=== PATIENT | female | born 1955 | race Caucasian/White ===

== ENCOUNTER → 2017-12-16 07:45 | Outpatient (CLI) | payer OTHER, SELFPAY ==
[2016-11-25 14:44] VITALS: BMI 21.6
--- NOTE | 2017-12-16 07:47 | CDU_ITS ---
Reason For Study: bruit Rt. Velocities/BP Lt. Velocities/BP Prox CCA 68.0/25.8 cm/sec. Prox CCA 70.9/26.4 cm/sec. Mid CCA 85.0/27.6 cm/sec. Mid CCA 80.9/29.9 cm/sec. Dist CCA 75.0/25.8 cm/sec. Dist CCA 58.6/25.2 cm/sec. Prox ICA 73.3/28.7 cm/sec. Prox ICA 130/51.1 cm/sec. Mid ICA 75.6/34.0 cm/sec. Mid ICA 133/47.1 cm/sec. Dist ICA 79.7/32.8 cm/sec. Dist ICA 92.6/36.4 cm/sec. Rt. ICA/CCA = .9. Lt. ICA/CCA = 1.6. Prox ECA 101/24.6 cm/sec. Prox ECA 96.7/24.0 cm/sec. Rt. Vert. 31.1/11.7 cm/sec. Lt. Vert. 68.6/25.8 cm/sec. Right Extracranial There is homogeneous, smooth atherosclerotic plaque noted in the right common carotid artery. There is heterogeneous, irregular atherosclerotic plaque noted in the right internal carotid artery. There is homogeneous, smooth atherosclerotic plaque noted in the right external carotid artery. Antegrade flow is noted in the right vertebral artery. Left Extracranial There is homogeneous, smooth atherosclerotic plaque noted in the left common carotid artery. There is heterogeneous, irregular atherosclerotic plaque noted in the left internal carotid artery. There is heterogeneous, irregular atherosclerotic plaque noted in the left external carotid artery. Antegrade flow is noted in the left vertebral artery. Procedure Carotid Duplex 06696. The exam was diagnostic. Exam performed in department. Interpretation Summary Calcific irregular plague at the proximal right internal carotid with <50% stenosis. Normal flow right external carotid Calcific irregular plague at the proximal left internal carotid with 50-69% stenosis. Normal flow left external carotid Patent and antegrade vertebrals bilaterally Progression of disease on the left since 06/11/09. Ordering Physician: Karuna Gaspar Performed By: Oniel Anderson RVT
--- NOTE | 2017-12-17 06:08 | LEAS ---
Arterial Study - Arterial Study Arterial Study: Bilateral lower extremity noninvasive arterial exam at rest Patient with bilateral lower extremity claudication Right lower extremity The right PT and DP ankle-brachial index at rest are 1.1 401.14 respectively with triphasic Doppler waveforms. Volume pulse recordings do demonstrate normal amplification at the calf. The ankle waveforms are well maintained. Left lower extremity The left PT and DP ankle-brachial indices at rest are 1.1 and 1.05 respectively. Again the Doppler waveforms are triphasic. The volume pulse recordings demonstrate normal amplification at the calf. The ankle waveforms are well maintained. Impression Normal bilateral lower extremity noninvasive arterial exam at rest Adan Benitez M.D., F.A.C.S.
== END ==
PROVIDERS: Family Provider Nurse Practitioner Primary Care; PCP Nurse Practitioner Primary Care; Referring Provider Physician Assistant Medical; Visit Provider Physician Assistant Medical
DX: I10 Essential (primary) hypertension (principal); E78.00 Pure hypercholesterolemia, unspecified; I73.9 Peripheral vascular disease, unspecified; R09.89 Other specified symptoms and signs involving the circulatory and respiratory systems; I25.10 Atherosclerotic heart disease of native coronary artery without angina pectoris
CPT/HCPCS: 93880; 93923

== ENCOUNTER → 2018-04-25 12:48 | Outpatient (CLI) | payer OTHER, SELFPAY ==
[2016-11-25 14:44] VITALS: BMI 21.6
[2018-03-03 14:53] VITALS: BMI 23.3
--- NOTE | 2018-04-25 12:52 | CT_ITS ---
STUDY: CT CHEST WITHOUT CONTRAST REASON FOR EXAM: Female, 63 years old. Follow-up pulmonary nodule. Previous smoker. Quit smoking 4 years ago. RADIATION DOSAGE (If Supplied By Facility): CTDIvol = ( 7.23 ) mGy, DLP = ( 248.23 ) mGycm TECHNIQUE: Transaxial imaging was performed without the administration of intravenous contrast material. Coronal and sagittal reconstructions were performed. Individualized dose optimization techniques were used for this CT. COMPARISON: None. FINDINGS: Pulmonary hyperinflation with flattening of the hemidiaphragms. 10 mm ill-defined round infiltrate with air bronchograms in the superior segment of the left lower lobe (series 4, image 136). 1 x 0.6 cm thick walled cyst in the anterior peripheral segment of the right upper lobe (series 4, image 74). Asymmetric bilateral apical pleural scarring, right greater than left. No pleural fluid. Normal heart and pericardium. Normal mediastinum. Normal hilar regions. Normal unenhanced pulmonary arteries. Mild dilatation of the ascending aorta with a diameter of 3.3 cm versus 2.2 cm for the descending thoracic aorta. Mild anterior wedging of the L1 superior endplate may be developmental or from remote injury. No acute osseous abnormality. There is no demonstrated abnormality of the visualized upper abdomen. CT/Chest without Contrast IMPRESSION: 1. 10 mm ill-defined from infiltrate containing small air bronchograms in the superior segment of the left lower lobe. Follow-up CT in one month will be very helpful for more definitive evaluation. 2. 1 x 0.6 cm thick-walled cyst in the peripheral aspect of the anterior segment of the right upper lobe. This may be postinflammatory. 3. Asymmetric bilateral apical pleural scarring, right greater than left. 4. Mild dilatation of the ascending aorta with a diameter of 3.3 cm versus 2.2 cm for the descending thoracic aorta. 5. Old mild anterior wedge compression fracture of the upper L1 vertebral body. Electronically Signed: Raudel Ahuja MD at 13:53 EST , Service support ,
== END ==
PROVIDERS: Family Provider Nurse Practitioner Primary Care; PCP Nurse Practitioner Primary Care; Referring Provider Internal Medicine Pulmonary Disease; Visit Provider Internal Medicine Pulmonary Disease
DX: R91.1 Solitary pulmonary nodule (principal)
CPT/HCPCS: 71250

== ENCOUNTER 2018-07-14 11:32 | Emergency (ER) | payer OTHER, SELFPAY ==
[2016-11-25 14:44] VITALS: BMI 21.6
[2018-03-03 14:53] VITALS: BMI 23.3
[2018-07-14 11:32] VITALS: BP 146/71; PULSE 107; RESP 16; TEMP 36.7; O2SAT 98; BMI 22.6
--- NOTE | 2018-07-14 12:09 | VDLE_ITS ---
Reason For Study: swelling RIGHT LEFT GSV is normal. CFV is compressible, spontaneous, phasic, CFV is compressible, spontaneous, phasic, competent, and demonstrates normal competent and demonstrates normal augmentation. augmentation. FV is compressible, spontaneous, phasic, competent and demonstrates normal augmentation. POP V is compressible, spontaneous, phasic, competent and demonstrates normal augmentation. T/P Trunk is compressible. PTV is compressible. RT PerV is compressible. Procedure Exam performed portable in ED. The exam was diagnostic. A preliminary report was called and/or faxed to Dr. Davidson. Interpretation Summary There is no evidence of right lower extremity deep vein thrombosis. Right greater saphenous vein appears patent and compressible segmentally. Normal flow patterns left common femoral vein. Ordering Physician: Silverio Davidson Performed By: Oniel Anderson RVT
--- NOTE | 2018-07-14 12:11 | ED.VISSUMM ---
- ER Visit Summary Date of Service: 07/14/18 Chief Complaint: Right lower ankle swelling and lower leg History of Present Illness: The patient is a 63 F status post left partial lung resection at the [facility] several weeks ago. Patient had a lung cancer they resected. She is been doing well. She denies DVT or PE. He was in the hospital 1 day. She denies any chest pain or shortness of breath. States otherwise she feels fine. Was told me that this checked out due to the possibility of it being a blood clot. She denies any trauma to her leg. Says she normally does not swelling. Physical Examination: Well-appearing older female. Vital signs are stable afebrile. H EENT exam unremarkable. Neck nontender no JVD. Lungs clear to auscultation bilaterally. Heart regular rhythm no murmur. Chest wall nontender. Abdomen soft and nontender. Normal bowel sounds no peritoneal signs. No ascites. Patient is moving all 4 extremities. Neurovascular intact. Is a very small amount of swelling to her right lateral lower leg and ankle. There is no deformity. The bones are nontender. She has normal range of motion to her right hip, right knee, right ankle and foot. Foot is neurovascular intact with normal touch sensation motor strength and DP pulse. Calves are nontender without cords. The left lower extremity has no edema or swelling. Back exam shows well-healing left lateral incisions clear dry and clean. Test Results: Noninvasive study of her right lower extremity shows no DVT per the hearing aid repair technician. Emergency Department Course and Treatment: Repeat exam patient is doing well and 12:40 PM. Discussed test results with the patient. Treatment Plan: Elevate her leg. Follow-up if not improving. Disposition: Discharge Impression: Atraumatic right lower leg swelling Status post recent partial left lung resection due to lung CA This note was generated with [employer] software. It may contain incorrect words, spelling, and punctuation that were not noted in review of the chart prior to signing ED Disposition - Plan for ED Patient: Referrals: Izabella Do NP-C [Primary Care Provider] -
--- NOTE | 2018-07-14 12:52 | ED.DEP ---
ED Disposition - Plan for ED Patient: Disposition: Home or Assisted Living Referrals: Izabella Do NP-C [Primary Care Provider] - 1 Week if not improving Additional Instructions: Elevate your leg to decrease swelling. No signs of blood clot today. Follow-up with your doctor if not improving.
== END 2018-07-14 13:05 | disposition home or self-care (01) ==
LOC: ED 13:20
PROVIDERS: Emergency Provider Emergency Medicine; Family Provider Nurse Practitioner Primary Care; PCP Nurse Practitioner Primary Care
DX: M79.89 Other specified soft tissue disorders (principal); R60.0 Localized edema; C34.92 Malignant neoplasm of unspecified part of left bronchus or lung; I25.10 Atherosclerotic heart disease of native coronary artery without angina pectoris; I10 Essential (primary) hypertension; Z79.51 Long term (current) use of inhaled steroids; Z79.82 Long term (current) use of aspirin; Z79.899 Other long term (current) drug therapy
CPT/HCPCS: 93971; 99282

== ENCOUNTER → 2019-01-26 | Outpatient (CLI) | payer OTHER, SELFPAY ==
[2016-11-25 14:44] VITALS: BMI 21.6
[2018-08-31 10:02] VITALS: BMI 22.2
--- NOTE | 2019-01-26 07:20 | CT_ITS ---
STUDY: CT CHEST WITHOUT CONTRAST REASON FOR EXAM: Female, 63 years old. History of lung cancer, study for follow-up. RADIATION DOSAGE (If Supplied By Facility): CTDIvol = ( 7.16 ) mGy, DLP = ( 273.78 ) mGycm TECHNIQUE: Transaxial imaging was performed without the administration of intravenous contrast material. Multiplanar coronal and sagittal images were reformatted. Individualized dose optimization techniques were used for this CT. COMPARISON: None. FINDINGS: The lungs are expanded with moderate to large bullous changes consistent with emphysema. This questionable groundglass opacity with reticular pattern within the right lower lobe which may indicate pneumonitis. Other presentation of TB not entirely excluded. There is mild bilateral lower lobe scarring. Heart maintains normal size. Coronary artery calcifications noted. Normal mediastinum. Normal hilar regions. Normal unenhanced pulmonary arteries. There is atherosclerotic calcification of the aortic arch with tortuosity and elongation of the aortic arch and descending thoracic aorta. Diffuse osteopenia qualitative along with multilevel degenerative disease. There is no demonstrated abnormality of the visualized upper abdomen. CT/Chest without Contrast IMPRESSION: Diffuse emphysematous changes throughout the bilateral lung driscoll, more severe in the lung apices. Right lower lobe airspace disease suggestive of pneumonia. Clinical correlation recommended. Electronically Signed: Yolande Sanchez MD at 5:25 EST , Service support ,
== END | disposition home or self-care (01) ==
LOC: CT 07:19
PROVIDERS: Family Provider Nurse Practitioner Primary Care; PCP Nurse Practitioner Primary Care; Referring Provider Internal Medicine Pulmonary Disease; Visit Provider Internal Medicine Pulmonary Disease
DX: R91.1 Solitary pulmonary nodule (principal); C34.90 Malignant neoplasm of unspecified part of unspecified bronchus or lung
CPT/HCPCS: 71250

== ENCOUNTER → 2019-02-15 14:47 | Outpatient (CLI) | payer OTHER, SELFPAY ==
[2016-11-25 14:44] VITALS: BMI 21.6
[2018-08-31 10:02] VITALS: BMI 22.2
[2019-02-15 16:17] LABS: Absolute Lymphocyte Count 1.04 X10^3/uL (0.83-4.51); Absolute Neutrophil Count 4.9 X10^3/uL (2.0-7.7); Basophil# 0.03 X10^3/uL; Basophil% 0.4 % (0-1); Eosinophil# 0.17 X10^3/uL; Eosinophils% 2.4 % (0-5); Hematocrit 39.5 % (37-47); Hemoglobin 12.6 g/dL (12.0-15.0); Lymphocyte # 1.04 X10^3/ul (4.0); Lymphocyte % 14.8 % (19-41); Mean Corp Hgb Conc 31.9 g/dL (32-36); Mean Corpuscular Hgb 31.2 pg (27.0-32.0); Mean Corpuscular Volume 97.8 fL (81-99); Mean Platelet Vol. 11.1 fl (6.2-12.0); Monocyte# 0.89 X10^3/uL; Monocyte% 12.7 % (0-10); NRBC Flagged by Analyzer 0 % (0-5); Neutrophil # 4.85 X10^3/uL (2.7-7.7); Platelet Count 190 K/mm3 (150-450); RBC Distribution Width SD 46.5 fl (35.1-43.9); Red Blood Count 4.04 M/mm3 (4.2-5.4)
== END ==
PROVIDERS: Family Provider Nurse Practitioner Primary Care; PCP Nurse Practitioner Primary Care; Referring Provider Internal Medicine Pulmonary Disease; Visit Provider Internal Medicine Pulmonary Disease
DX: J44.9 Chronic obstructive pulmonary disease, unspecified (principal)
CPT/HCPCS: 36415; 85025; 87070; 87205

== ENCOUNTER → 2019-09-08 07:30 | Outpatient (CLI) | payer OTHER, SELFPAY ==
[2016-11-25 14:44] VITALS: BMI 21.6
[2018-08-31 10:02] VITALS: BMI 22.2
[2019-08-24 11:20] VITALS: BMI 22.2
--- NOTE | 2019-09-08 07:32 | CT_ITS ---
STUDY: LOW DOSE CT LUNG CANCER SCREENING REASON FOR EXAM: Female, 64 years old. TOBACCO USE, LUNG NODULE RADIATION DOSAGE (If Supplied By Facility): CTDIvol = ( 2.01 ) mGy, DLP = ( 77.26 ) mGycm TECHNIQUE: No contrast was administered. Low dose technique was utilized (average mAS-38 and kVp 120). 1.25 mm axial source images with a slice interval of 1.25-mm were reconstructed in lung windows. 2.5 mm axial source images with a slice interval of 2.5-mm were reconstructed in lung windows. 5.0 mm axial source images with a slice interval of 5.0-mm were reconstructed in soft tissue windows. Nodule measured using lung windows on PACS and/or independent workstation with automated measurement of minimum and maximum diameter. Nodule measurement reported as average diameter rounded to the nearest whole number. Growth is defined as an increase ins size of greater than 1.5 mm. COMPARISON: 01/26/2019 FINDINGS: Lung windows show underlying emphysema with bleb formation in the upper lobes. Stable fibrotic scarring in both apices. There is a stable pneumatocele in the right upper lobe on axial image 99. There is a stable calcified scar in the left upper lobe on axial image 132. There is a new 0.64 cm noncalcified nodule in the right middle lobe on axial image 155. There is a stable 3 mm noncalcified nodule in the right lower lobe on axial image 223. This new 0.64 cm nodule should be followed up with a CT chest in 6 months There has been resolution of the previously described airspace opacifications in the right lower lobe. There is no superimposed acute pulmonary process, or suspicious groundglass opacifications. Limited soft tissue windows show normal-appearing thyroid. No suspicious axillary or mediastinal adenopathy. There are calcified coronary vessels. No pleural or pericardial effusions. Degenerative bony changes noted. CT/Low Dose CT Lung Screening IMPRESSION: Lung-RADS category 3 - Continue screening with LDCT in 6 months. IMPORTANT NOTES FOR USE: ACR Lung-RADS Version 1.0 Assessment Categories Release Date: July 10, 2013 Category: Coded 0-4 bases on nodule(s) with highest degree of suspicion. Negative screen is defined as categories 1 and 2; a positive screen is defined as categories 3 and 4. Category 3 and 4A nodules that are unchanged on interval CT should be coded as category 2, and individuals returned to screening in 12 months. Category 4X: Category 3 or 4 nodules with additional imaging findings that increase the suspicion of lung cancer, such as spiculation, GGN that doubles in size in 1 year, enlarged lymph notes, etc. Category Modifiers: S (significant finding unrelated to lung cancer) and C (prior history of treated lung cancer) may be added to the 0-4 Lung-RADS Electronically Signed: Triston Pantoja MD at 14:12 EDT , Service support ,
== END ==
PROVIDERS: Family Provider Nurse Practitioner Primary Care; PCP Nurse Practitioner Primary Care; Referring Provider Internal Medicine Pulmonary Disease; Visit Provider Internal Medicine Pulmonary Disease
DX: R91.1 Solitary pulmonary nodule (principal); Z87.891 Personal history of nicotine dependence
CPT/HCPCS: G0297

== ENCOUNTER → 2019-09-12 08:03 | Outpatient (CLI) | payer OTHER, SELFPAY ==
[2016-11-25 14:44] VITALS: BMI 21.6
[2019-08-24 11:20] VITALS: BMI 22.2
--- NOTE | 2019-09-12 08:03 | ECHOD_ITS ---
Reason For Study: CAD Procedure This was a 2D Doppler, Color Flow transthoracic echocardiogram. Exam performed in department. Left Ventricle Normal size and thickness. The estimated ejection fraction is 65 %. Stage 1 diastolic dysfunction. No regional wall motion abnormalities noted. Right Ventricle Normal size and thickness. A moderator band is seen in the right ventricle. Normal systolic function. Atria Normal left atrium. Normal right atrium. Normal atrial septum. Mitral Valve The mitral valve is structurally normal. No prolapse or stenosis seen. Mild (1+) eccentric mitral valve insufficiency. Tricuspid Valve Normal tricuspid valve. Mild (1+) tricuspid valve insufficiency. Right ventricular systolic pressure estimated to be 29 mmHg. Aortic Valve Normal aortic valve. Trisinus/trileaflet aortic valve. Pulmonic Valve Normal pulmonic valve. Great Vessels Normal aortic root. Normal arch. Normal inferior vena cava. Inferior vena cava collapse with sniff. Pericardium/Pleural No pericardial effusion. MMode/2D Measurements & Calculations LVIDd: 4.0 cm IVSd: 1.0 cm LAV(MOD-bp): 33.5 ml LVIDs: 2.4 cm LVPWd: 1.1 cm LAV(MOD-bp) Indexed: 19.6 ml/m2 FS: 40.8 % LAV(MOD-sp2): 42.3 ml LAV(MOD-sp4): 25.9 ml LA dimension(2D): 3.0 cm LA A4 area: 12.4 cm2 RA A4 area: 12.2 cm2 Doppler Measurements & Calculations MV E max jhony: 77.1 cm/sec Lat Peak E' Jhony: 5.6 cm/sec Med Peak E' Jhony: 4.3 cm/sec MV A max jhony: 101.4 cm/sec E/E' lat: 13.7 E/E' med: 17.8 MV E/A: 0.76 Ao V2 max: 111.1 cm/sec LV V1 max: 94.4 cm/sec PA V2 max: 69.5 cm/sec Ao max P.9 mmHg LV V1 max P.6 mmHg TR max jhony: 229.2 cm/sec TR max P.1 mmHg Interpretation Summary The estimated ejection fraction is 65 %. Stage 1 diastolic dysfunction. Mild (1+) eccentric mitral valve insufficiency. Mild (1+) tricuspid valve insufficiency. Right ventricular systolic pressure estimated to be 29 mmHg. Compared to echo report dated 09/20/2007, LV function has normalized from 53% to 65%. Ordering Physician: Pedro Luis Holland Referring Physician: Izabella Do Performed By: Leda Broderick RDCS and Student
== END ==
PROVIDERS: PCP Nurse Practitioner Primary Care; Referring Provider Internal Medicine Cardiovascular Disease; Visit Provider Internal Medicine Cardiovascular Disease
DX: I25.10 Atherosclerotic heart disease of native coronary artery without angina pectoris (principal); E78.00 Pure hypercholesterolemia, unspecified; F17.200 Nicotine dependence, unspecified, uncomplicated
CPT/HCPCS: 93306

== ENCOUNTER 2020-05-21 08:00 | Outpatient (RCR) | payer MEDICARE, SELFPAY ==
[2016-11-25 14:44] VITALS: BMI 21.6
[2020-03-28 13:01] VITALS: BMI 22.9
[2020-05-21] MEDS: COVID-19 VACC, MRNA(PFIZER)/PF 30 MCG/0.3 ML SYRINGE IM (11:48)
[2020-06-11] MEDS: COVID-19 VACC, MRNA(PFIZER)/PF 30 MCG/0.3 ML SYRINGE IM (11:12)
== END 2020-08-20 23:59 ==
LOC: IMMUN 08:00
PROVIDERS: PCP Nurse Practitioner Primary Care; Visit Provider Family Medicine
DX: Z23 Encounter for immunization (principal)
CPT/HCPCS: 0001A; 0002A; 91300

== ENCOUNTER 2021-03-27 09:39 | Outpatient (CLI) | payer MEDICARE, SELFPAY ==
[2016-11-25 14:44] VITALS: BMI 21.6
[2021-03-27 10:58] LABS: AST(SGOT) 40 U/L (15-37); Alanine Aminotransfer ALT/SGPT 41 U/L (13-56); Albumin, Serum 4.1 g/dL (3.2-5.0); Alkaline Phosphatase 134 U/L (45-117); Bilirubin, Direct 0.14 mg/dL (0.00-0.30); Cholesterol 176 mg/dL (200); Globulin 4.5 g/dL (2.2-4.2); High Density Lipoprotein 72 mg/dL; Protein, Total 8.6 g/dL (6.4-8.2); Triglycerides 113 mg/dL; Very Low Density Lipoprotein 23 mg/dL (5-40)
== END 2021-03-27 23:59 | disposition short-term general hospital (02) ==
PROVIDERS: PCP Nurse Practitioner Primary Care; Referring Provider Internal Medicine Cardiovascular Disease; Visit Provider Internal Medicine Cardiovascular Disease
DX: E78.00 Pure hypercholesterolemia, unspecified (principal); I25.10 Atherosclerotic heart disease of native coronary artery without angina pectoris; I65.22 Occlusion and stenosis of left carotid artery; I10 Essential (primary) hypertension; Z95.5 Presence of coronary angioplasty implant and graft
CPT/HCPCS: 36415; 80061; 80076

== ENCOUNTER 2021-05-16 12:43 | Outpatient (CLI) | payer MEDICARE, SELFPAY ==
[2016-11-25 14:44] VITALS: BMI 21.6
--- NOTE | 2021-05-16 12:51 | CDU_ITS ---
Reason For Study: Carotid artery disease Rt. Velocities/BP Lt. Velocities/BP Prox CCA 70.8/16 cm/sec. Prox CCA 69.2/11.6 cm/sec. Mid CCA 82.6/14.7 cm/sec. Mid CCA 70.2/14.5 cm/sec. Dist CCA 72.1/16 cm/sec. Dist CCA 64.5/19.2 cm/sec. Prox ICA 78.6/12.1 cm/sec. Prox ICA 143/38.9 cm/sec. Mid ICA 81.2/23.9 cm/sec. Mid ICA 115.6/24.3 cm/sec. Dist ICA 68.2/20 cm/sec. Dist ICA 75.4/27.9 cm/sec. Rt. ICA/CCA = 1.13. Lt. ICA/CCA = 2.07. Prox ECA 94.3/9.5 cm/sec. Prox ECA 137.5/13.3 cm/sec. Rt. Vert. 29.4/8.8 cm/sec. Lt. Vert. 41.9/13.5 cm/sec. Right Extracranial There is homogeneous, smooth atherosclerotic plaque noted in the right common carotid artery. There is heterogeneous, irregular atherosclerotic plaque noted in the right internal carotid artery. There is homogeneous, smooth atherosclerotic plaque noted in the right external carotid artery. Antegrade flow is noted in the right vertebral artery. Left Extracranial There is heterogeneous, irregular atherosclerotic plaque noted in the left common carotid artery. There is heterogeneous, irregular atherosclerotic plaque noted in the left internal carotid artery. There is heterogeneous, irregular atherosclerotic plaque noted in the left external carotid artery. Antegrade flow is noted in the left vertebral artery. Procedure Carotid Duplex [id number]. This is a Carotid Duplex examination using B-mode, color flow and specral Doppler. Exam performed in department. VL/Carotid Duplex Ultrasound Interpretation Summary Mild (<50%) stenosis right extracranial internal carotid. Moderate (50-69%) anai nosis left extracranial internal carotid. Flow within the vertebral arteries is antegrade bilaterally. Ordering Physician: Scooter Ulrich Referring Physician: Izabella Do Performed By: Sandra Huggins RVT
== END 2021-05-16 23:59 | disposition home or self-care (01) ==
LOC: CVS 12:45
PROVIDERS: PCP Nurse Practitioner Primary Care; Referring Provider Internal Medicine Cardiovascular Disease; Visit Provider Internal Medicine Cardiovascular Disease
DX: R09.89 Other specified symptoms and signs involving the circulatory and respiratory systems (principal); I77.9 Disorder of arteries and arterioles, unspecified
CPT/HCPCS: 93880

== ENCOUNTER → 2021-11-10 | Outpatient (CLI) | payer MEDICARE, SELFPAY ==
[2016-11-25 14:44] VITALS: BMI 21.6
[2021-11-10 10:58] LABS: AST(SGOT) 53 U/L (15-37); Alanine Aminotransfer ALT/SGPT 36 U/L (13-56); Alkaline Phosphatase 118 U/L (45-117); Bilirubin, Direct 0.18 mg/dL (0.00-0.30); Cholesterol 151 mg/dL (200); High Density Lipoprotein 71 mg/dL; Triglycerides 104 mg/dL; Very Low Density Lipoprotein 21 mg/dL (5-40)
== END | disposition home or self-care (01) ==
LOC: LAB 09:52
PROVIDERS: PCP Nurse Practitioner Primary Care; Referring Provider Physician Assistant Medical; Visit Provider Physician Assistant Medical
DX: E78.00 Pure hypercholesterolemia, unspecified (principal)
CPT/HCPCS: 36415; 80061; 80076

== ENCOUNTER → 2022-06-16 | Outpatient (CLI) | payer MEDICARE, SELFPAY ==
[2016-11-25 14:44] VITALS: BMI 21.6
--- NOTE | 2022-06-16 12:49 | CDU_ITS ---
Reason For Study: Carotid Stenosis Rt. Velocities/BP Lt. Velocities/BP Prox CCA 72.4/14.7 cm/sec. Prox CCA 84.2/17.1 cm/sec. Mid CCA 77.1/15.7 cm/sec. Mid CCA 95.2/20.4 cm/sec. Dist CCA 55.4/7.2 cm/sec. Dist CCA 62.2/8.4 cm/sec. Prox ICA 100.2/31.4 cm/sec. Prox ICA 164.8/32.7 cm/sec. Mid ICA 80.9/21.4 cm/sec. Mid ICA 181.3/38.6 cm/sec. Dist ICA 49.5/12.5 cm/sec. Dist ICA 79.8/28.1 cm/sec. Rt. ICA/CCA = 1.3. Lt. ICA/CCA = 1.9. Prox ECA 106.9/13.5 cm/sec. Prox ECA 174.7/7.9 cm/sec. Rt. Vert. 26.6/8.1 cm/sec. Lt. Vert. 62.0/14.7 cm/sec. Right Extracranial There is heterogeneous, irregular atherosclerotic plaque noted in the right common carotid artery. There is heterogeneous, irregular atherosclerotic plaque noted in the right internal carotid artery. There is heterogeneous, irregular atherosclerotic plaque noted in the right external carotid artery. Antegrade flow is noted in the right vertebral artery. Left Extracranial There is heterogeneous, irregular atherosclerotic plaque noted in the left common carotid artery. There is heterogeneous, irregular atherosclerotic plaque noted in the left internal carotid artery. There is heterogeneous, irregular atherosclerotic plaque noted in the left external carotid artery. Antegrade flow is noted in the left vertebral artery. VL/Carotid Duplex Ultrasound Interpretation Summary Mild (<50%) stenosis right extracranial internal carotid. Moderate (50-69%) stenosis left extracranial internal carotid. Patent and antegrade vertebrals bilaterally. Ordering Physician: Karuna Gaspar Referring Physician: Karuna Gaspar Performed By: Vinnie Lee RVT
== END | disposition home or self-care (01) ==
LOC: CVS 12:46
PROVIDERS: PCP Nurse Practitioner Primary Care; Referring Provider Physician Assistant Medical; Visit Provider Physician Assistant Medical
DX: R09.89 Other specified symptoms and signs involving the circulatory and respiratory systems (principal)
CPT/HCPCS: 93880

== ENCOUNTER → 2022-09-03 | Outpatient (CLI) | payer MEDICARE, SELFPAY ==
[2016-11-25 14:44] VITALS: BMI 21.6
[2022-09-03 15:48] LABS: Absolute Lymphocyte Count 0.75 X10^3/uL (0.83-4.51); Absolute Neutrophil Count 7.6 X10^3/uL (2.0-7.7); Basophil# 0.02 X10^3/uL; Basophil% 0.2 % (0-1); Eosinophil# 0.01 X10^3/uL; Eosinophils% 0.1 % (0-5); Hematocrit 42.3 % (37-47); Lymphocyte # 0.75 X10^3/ul (0.83-4.51); Lymphocyte % 8.3 % (19-41); Mean Corp Hgb Conc 33.1 g/dL (32-36); Mean Corpuscular Hgb 31.9 pg (27.0-32.0); Mean Corpuscular Volume 96.4 fL (81-99); Mean Platelet Vol. 10.3 fl (6.2-12.0); Monocyte% 5.6 % (0-10); NRBC Flagged by Analyzer 0 % (0-5); Neutrophil # 7.57 X10^3/uL (2.7-7.7); Neutrophil % 84.2 % (47-70); Platelet Count 168 K/mm3 (150-450); RBC Distribution Width CV 13.2 % (11.6-14.6); RBC Distribution Width SD 47.1 fl (35.1-43.9); Red Blood Count 4.39 M/mm3 (4.2-5.4)
== END | disposition home or self-care (01) ==
PROVIDERS: PCP Nurse Practitioner Primary Care; Referring Provider Physician Assistant Medical; Visit Provider Physician Assistant Medical
DX: I25.10 Atherosclerotic heart disease of native coronary artery without angina pectoris (principal)
CPT/HCPCS: 36415; 85025

== ENCOUNTER 2022-09-16 13:40 | Emergency (ER) | payer MEDICARE, SELFPAY ==
[2016-11-25 14:44] VITALS: BMI 21.6
[2022-09-16] VITALS (7 sets, daily range): BP systolic 149–159; BP diastolic 72–95; PULSE 71–82; RESP 14–18; TEMP 36; O2SAT 95–97; BMI 23.9
--- NOTE | 2022-09-16 14:04 | EKG12_ITS ---
Test Reason : CHEST PAIN Blood Pressure : / mmHG Vent. Rate : 077 BPM Atrial Rate : 077 BPM P-R Int : 158 ms QRS Dur : 074 ms QT Int : 396 ms P-R-T Axes : 072 042 066 degrees QTc Int : 448 ms Normal sinus rhythm Normal ECG Confirmed by ELDA BALTAZAR, LINDA ([id number]), newspaper photo editor MARLA SUTHERLAND ([id number]) on 09/21/2022 12:45:49 P M Referred By: BRIANNA Confirmed By:BONNIE SCHROEDER MD
[2022-09-16 14:21] LABS: Absolute Lymphocyte Count 0.56 X10^3/uL (0.83-4.51); Absolute Neutrophil Count 6.2 X10^3/uL (2.0-7.7); Basophil# 0.04 X10^3/uL; Basophil% 0.5 % (0-1); Eosinophil# 0.07 X10^3/uL; Eosinophils% 0.9 % (0-5); Hematocrit 38.6 % (37-47); Hemoglobin 12.9 g/dL (12.0-15.0); Lymphocyte # 0.56 X10^3/ul (0.83-4.51); Lymphocyte % 7.4 % (19-41); Mean Corp Hgb Conc 33.4 g/dL (32-36); Mean Corpuscular Hgb 32.4 pg (27.0-32.0); Mean Platelet Vol. 10.2 fl (6.2-12.0); Monocyte# 0.57 X10^3/uL; Monocyte% 7.5 % (0-10); NRBC Flagged by Analyzer 0 % (0-5); Neutrophil # 6.24 X10^3/uL (2.7-7.7); Neutrophil % 82.6 % (47-70); POSITIVE DIFFERENTIAL YES; Platelet Count 132 K/mm3 (150-450); RBC Distribution Width CV 12.7 % (11.6-14.6); RBC Distribution Width SD 45.6 fl (35.1-43.9); Red Blood Count 3.98 M/mm3 (4.2-5.4); White Blood Count 7.6 K/mm3 (4.4-11.0)
[2022-09-16] MEDS: Ipratropium/Albuterol Sulfate 3 ML AMPUL.NEB INHALATION (14:31)
[2022-09-16] MEDS: Albuterol 2.5 MG/3 ML VIAL.NEB. INHALATION (14:31)
--- NOTE | 2022-09-16 14:37 | ED.VIS.DYS ---
HPI History of Present Illness Chief Complaint: Shortness of Breath Detail of Chief Complaint: Shortness of breath for 2 weeks. History of COPD. Informant: patient and spouse/S.O. Onset/Context/Timing Onset: Weeks Context: gradual Timing: Continuous Quality: Positive for Wheezing Current Severity: Mild Maximum Severity: Mild Worsened by: Nothing Associated Symptoms cough and clear sputum; Negative for fever Chest Pain: Positive for None Narrative Narrative: 67-year-old female history of COPD and CAD not on oxygen at home. Does have aerosols and inhalers at home. For the last 2 weeks has had a productive cough of clear sputum more wheezing and shortness of breath. Has been being treated by her retail associate manager bilingual office. Has been on a steroid taper. Denies any chest pain. No fever or hemoptysis. Sputum is clear. No leg pain or swelling. No recent travel, surgery or immobilization. No history of DVT or PE. The retail associate manager bilingual office saw her today and sent him to the ER. PE Risk Factors: Negative for Cancer, OCP + Smoking + > 35, Prior DVT or PE, Recent immobilization, Recent surgery or Recent travel Prior similar symptoms: Yes Recent Illness/Hospitalization: No PFSH [facility] Medical History (Updated 09/16/22 @ 17:[address] Miguel Davidson MD) Atherosclerosis of coronary artery of havasupai heart without angina pectoris Benign essential HTN Bilateral carotid bruits COPD (chronic obstructive pulmonary disease) Left carotid artery stenosis Nicotine dependence Pure hypercholesterolemia Home Medications aspirin 81 mg tablet,delayed release 81 mg PO DAILY@0800 10/12/13 [History Last Taken 11/25/16 07:00] nitroglycerin 0.4 mg sublingual tablet 0.4 mg sublingual Q5-15M PRN chest pain #25 tabs 12/06/17 [Rx Last Taken Unknown] albuterol sulfate 90 mcg/actuation aerosol inhaler (Ventolin HFA) 2 puff inhalation Q6H PRN shortness of breath or wheezing 11/05/21 [History Last Taken Unknown] fluticasone fur. 100 mcg-umeclid 62.5 mcg-vilant 25 mcg inhalat.powder (Trelegy Ellipta) 1 inh inhalation DAILY 11/05/21 [History Last Taken Unknown] gabapentin 600 mg tablet 600 mg PO TID 11/05/21 [History Last Taken Unknown] furosemide 20 mg tablet 20 mg PO DAILY #90 tabs 02/04/22 [Rx Last Taken Unknown] rosuvastatin 10 mg tablet 10 mg PO QHS #90 tabs 02/27/22 [Rx Last Taken 09/15/22] carvedilol 25 mg tablet 25 mg PO BID #180 tabs 05/14/22 [Rx Last Taken Unknown] lisinopril 40 mg tablet 40 mg PO DAILY #90 tabs 08/24/22 [Rx Last Taken Unknown] albuterol sulfate 2.5 mg/3 mL (0.083 %) solution for nebulization 2.5 mg inhalation TID PRN bronchospasm 09/03/22 [History Last Taken Unknown] albuterol sulfate 90 mcg/actuation aerosol inhaler (Ventolin HFA) 1 - 2 puff inhalation Q4H PRN PRN Wheezing 7 days #1 inh 09/16/22 [Rx Last Taken Unknown] guaifenesin 1,200 mg tablet, extended release 12 hr (Mucinex) 1,200 mg PO BID 09/16/22 [History Last Taken 09/16/22] prednisone 20 mg tablet 60 mg (3 x 20 mg) PO BID 7 days #42 TABLETS 09/16/22 [Rx Last Taken Unknown] Allergy/AdvReac Type Severity Reaction Status Date / Time No Known Allergies Allergy Verified 09/16/22 13:43 Family History Father CAD (coronary artery disease) from [place] Sister PVD (peripheral vascular disease) 1 sister had carotid endarterectomies Surgical History History of appendectomy History of carpal tunnel surgery History of coronary artery stent placement (11/25/16) left lung partial lobectomy Social History Smoking Status: Former smoker quit date: 10/13/13 alcohol intake: current alcohol intake frequency: 3 or more drinks per day Alcohol type: hard liquor caffeine: Yes Type: coffee Number of servings: 4 ROS ROS ED ROS Narrative Shortness of breath. Cough of clear sputum. Review of Systems ROS Unobtainable: Denies due to encephalopathy Constitutional Constitutional ED: Denies chills or fever(s) Eyes Eyes: Denies blurry vision ENT ENT ED: Denies ear pain Cardiovascular Cardiovascular: Denies chest pain Respiratory/Chest Respiratory/Chest: Reports cough and dyspnea Gastrointestinal Gastrointestinal: Denies abdominal pain Genitourinary Genitourinary ED: Denies dysuria or hematuria Musculoskeletal Musculoskeletal: Denies arthralgias Integumentary Denies abscess Neurologic Neurologic: Denies headache(s) Psychiatric Psychiatric: Denies anxiety Endocrine Endocrinology: Denies cold intolerance Hematologic/Lymphatic Hematologic/Lymphatic: Denies easy bleeding or easy bruising Allergic/Immunologic Allergic/Immunologic ED: Denies mouth swelling or tongue swelling EXAM Physical Exam Narrative Exam Narrative: Outpatient 7-year-old female vital signs are stable afebrile. No distress. Pulse ox 97% on room air no hypoxia. Patient does not look septic or toxic. She does not have labored breathing. is at bedside. H EENT exam unremarkable. Neck nontender no JVD. No lymphadenopathy. Lungs dry cough. Expiratory wheezes bilaterally. No rales or rhonchi. Equal symmetrical. Heart regular rate and rhythm rate about 80 no murmur. Chest wall nontender. Abdomen soft nontender. Moving all 4 extremities nontender no edema. She is awake alert. Const Vital Signs: 09/16/22 13:41 09/16/22 14:13 09/16/22 14:34 Temperature 96.8 F L Temperature Source Temporal Pulse Rate 82 80 Respiratory Rate 18 18 Respiratory Effort Respiratory Depth Respiratory Pattern Normal Blood Pressure 159/95 H Blood Pressure Mean 116 Pulse Ox 97 95 Oxygen Delivery Method Room Air Room Air 09/16/22 14:10 09/16/22 15:40 09/16/22 16:52 Temperature Temperature Source Pulse Rate 71 75 Respiratory Rate 14 17 Respiratory Effort Short of Breath Respiratory Depth Normal Respiratory Pattern Tachypnea Blood Pressure 151/72 H 149/77 H Blood Pressure Mean 98 Pulse Ox 97 95 Oxygen Delivery Method Room Air Room Air Positive well nourished and well developed; Negative for obese, cachectic, contractures or unkempt General Appearance ED: well developed and NAD; Negative for unkempt, cachectic, contractures or pallor Nutritional Appearance: Negative for cachectic or obese HEENT Reports moist mucous membranes; Denies dry mucous membranes atraumatic; Negative for trauma or tenderness Mouth ED: No dry mucous membranes Mouth: No dry mucous membranes Eyes PERRL and EOMs intact bilaterally General Eye ED: Negative for pale conjunctiva or scleral icterus Neck no lymphadenopathy, supple, no meningeal signs and no JVD General: Negative for tenderness Lymph Lymphatic: Negative for other Chest Wall Chest: Negative for other Resp normal respiratory effort and No clear to auscultation bilaterally Auscultation: wheezes; Negative for rales or rhonchi Cardio regular rate, regular rhythm, S1 normal heart sound, S2 normal heart sound and no murmurs Rate: Negative for bradycardia or tachycardic Rhythm: Negative for abnormal rhythm GI non-tender, non-distended and no masses Inspection: Negative for other Auscultation: normoactive bowel sounds Palpation: soft; Negative for tender or guarding Bladder / Kidney Exam: No other Back/Spine no CVA tenderness and normal to inspection General Back: Negative for CVA tenderness or tenderness Extremity normal to inspection General Extremety ED: Negative for edema, tenderness or other findings General Extremity: Negative for edema or other findings Neuro oriented x3, CN's II-XII intact bilaterally and no sensory deficits noted Sensorium / Orientation: alert, oriented to person, oriented to place and oriented to time; Negative for orientation impaired, confused, lethargic or stuporous Motor Exam: strength 5/5 throughout Psych mental status grossly normal Appearance: Negative for unkempt Attitude: No agitated Mood & Affect: Negative for depressed Thought Process: normal thought process Skin no wounds and skin turgor normal General Skin Exam: Negative for jaundice or pallor Lesions: no lesions Rashes: no rashes Trauma: Negative for abrasion or laceration MDM MDM MDM Narrative Medical decision making narrative: 67-year-old female history of COPD with cough and shortness of breath for last 2 weeks. No chest pain. No history of DVT or PE or risk factors. She undergo cardiac work-up being treated with IV Solu-Medrol DuoNeb and albuterol aerosols and reassess. Patient doing well. She is ambulate in the hallway and her pulse ox stayed 94%. She had no distress. I spoke Dr. Landin her retail associate manager bilingual myself. He and the hospitalist, Dr. Monge, they came up with an outpatient plan. To be placed on 60 mg of prednisone twice a day for a week. She was also written for a new inhaler. Patient is doing well at 5 PM and be discharged home. Her and her are comfortable with the plan. History & Record Review Discussion w/independent historian: Patient and Family Additional record(s) reviewed:: Prior inpatient record, Prior outpatient record, Prior ED visit and Prior labs Lab Data Attestation: I reviewed the patient's lab results. Lab results narrative: CBC shows a white count of 7. H&H 12.9 and 38. Platelets 132. Electrolytes show sodium 133. Gap of 11. BUN and creatinine are 19 and 1.31. Glucose of 168. Troponin 6. Labs: Laboratory Results - last 24 hr 09/16/22 14:10 WBC 7.6 RBC 3.98 L Hgb 12.9 Hct 38.6 MCV 97.0 MCH 32.4 H MCHC 33.4 RDW Std Deviation 45.6 H RDW Coeff of Franny 12.7 Plt Count 132 L MPV 10.2 Immature Gran % (Auto) 1.100 H Neut % (Auto) 82.6 H Lymph % (Auto) 7.4 L [place] % (Auto) 7.5 Eos % (Auto) 0.9 Baso % (Auto) 0.5 Absolute Neuts (auto) 6.2 Absolute Lymphs (auto) 0.56 L Nucleated RBC % 0 Differential Comment SCANNED Sodium 133 L Potassium 3.7 Chloride 96 L Carbon Dioxide 26.0 Anion Gap 11 BUN 19 H Creatinine 1.31 H Est GFR (MDRD) Af Amer 52 L Est GFR (MDRD) Non-Af 43 L BUN/Creatinine Ratio 14.5 Glucose 168 H Calcium 8.8 Troponin I High Sens 6 Radiography Chest X-Ray - ED: 1 View, Read by ED Physician, Heart, Lungs, Mediastinum, Bony Structures, No Acute Disease and Chronic Changes Diagnostic Testing: Clinical Impression(s) from Imaging Studies Chest X-Ray 09/16/22 14:50 IMPRESSION: Hyperinflation. Stable calcified granulomas. No acute abnormality is seen. Electronically Signed: Ankush Miller MD at 15:31 EDT , Chest x-ray, portable, single view shows no acute abnormality. Normal cardiac silhouette normal mediastinum. Interpreted by myself. Rhythm Strip Rhythm Strip: Sinus Rhythm Rate: 77 Ectopy: None EKG Initial EKG: Attestation: I personally reviewed and interpreted this EKG as follows: Interpretation: Sinus Rhythm and No Acute Injury Pattern Comments: Normal sinus rhythm rate of 77 no acute signs of CA or ischemia. No S1Q3T3. Unremarkable EKG. Discharge Plan Triage Chief Complaint: Shortness of Breath ED Provider: Miguel Davidson Dx/Rx/DC Orders Clinical Impression: COPD with acute exacerbation Instructions: ED COPD Flare Prescriptions: New albuterol sulfate [Ventolin HFA] 90 mcg/actuation HFA aerosol inhaler 1 - 2 puff inhalation Q4H PRN PRN (Reason: Wheezing) 7 Days Qty: 1 1RF prednisone 20 mg tablet 60 mg PO BID 7 Days Qty: 42 0RF Rx Instructions: Follow-up with Dr. Landin and he can either continue the prednisone, tapered or change the dose. No Action nitroglycerin 0.4 mg tablet, sublingual 0.4 mg SUBLINGUAL Q5-15M PRN (Reason: chest pain) Qty: 25 3RF Rx Instructions: until response; do not exceed 3 doses per episode albuterol sulfate [Ventolin HFA] 90 mcg/actuation HFA aerosol inhaler 2 puff inhalation Q6H PRN (Reason: shortness of breath or wheezing) gabapentin 600 mg tablet 600 mg PO TID Trelegy Ellipta 100-62.5-25 mcg blister with device 1 inh inhalation DAILY albuterol sulfate 2.5 mg /3 mL (0.083 %) solution for nebulization 2.5 mg inhalation TID PRN (Reason: bronchospasm) aspirin 81 MG tablet 81 mg PO DAILY@0800 Mucinex 1,200 mg tablet extended release 12hr 1,200 mg PO BID furosemide 20 mg tablet 20 mg PO DAILY Qty: 90 3RF rosuvastatin 10 mg tablet 10 mg PO QHS Qty: 90 3RF carvedilol 25 mg tablet 25 mg PO BID Qty: 180 3RF Rx Instructions: must administer with a meal/food lisinopril 40 mg tablet 40 mg PO DAILY Qty: 90 3RF Primary Care Provider: Izabella Do NP Referrals: Adan Landin MD [Med Staff - Active Staff] - 3-5 Days Izabella Do NP, NEGATIVE DEVELOPER-C [Primary Care Provider] - Activity Restrictions/Additional Instructions: Follow-up with Dr. Landin in the next 3 to 5 days to ensure you are improving. Prednisone 60 mg twice a day for the next week. Dr. Landin can adjust the medications as he feels necessary. Return if feeling worse. Use your inhaler as needed.
[2022-09-16 14:38] LABS: Anion Gap 11 (5-15); BUN 19 mg/dL (7-18); BUN/Creat Ratio 14.5 RATIO (10-20); Calcium,Total 8.8 mg/dL (8.5-10.1); Chloride 96 mmol/L (98-107); Creatinine, Serum 1.31 mg/dL (0.55-1.02); EST Glomerular Filtration Rate 43 mL/min (>60); Est Glom Filt Rate - Afr Amer 52 mL/min (>60); Glucose 168 mg/dL (74-106); Potassium 3.7 mmol/L (3.5-5.1); Sodium Level 133 mmol/L (136-145); Troponin-I HS 6 pg/mL (3.0-54.0)
[2022-09-16] MEDS: MethylPREDNISolone 125 MG/2 ML Vial IV (14:40)
--- NOTE | 2022-09-16 14:50 | RAD_ITS ---
STUDY: X-RAY CHEST REASON FOR EXAM: Female, 67 years old. Chest pain TECHNIQUE: Single AP portable view of the chest. COMPARISON: Comparison is made with prior study dated November 20, 2016. FINDINGS: EKG electrodes are seen. Hyperinflation. Stable calcified granulomas. There is no demonstrated pleural abnormality. Normal size heart. Normal mediastinum and naila. Normal visualized pulmonary arteries. There is atherosclerotic calcification of the aortic arch with tortuosity. Normal visualized thoracic spine. Normal visualized ribs, clavicles, and shoulders. There is no demonstrated abnormality of the visualized soft tissue structures of the upper abdomen. RAD/Chest 1 View (Portable) IMPRESSION: Hyperinflation. Stable calcified granulomas. No acute abnormality is seen. Electronically Signed: Ankush Miller MD at 15:31 EDT ,
[2022-09-16 14:54] LABS: Differential Indicated SCAN CRITERIA MET
[2022-09-16 14:56] LABS: Differential Comment SCANNED
== END 2022-09-16 17:07 | disposition home or self-care (01) ==
LOC: ED 15:05
PROVIDERS: Emergency Provider Emergency Medicine; PCP Nurse Practitioner Primary Care; Visit Provider Emergency Medicine
DX: J44.1 Chronic obstructive pulmonary disease with (acute) exacerbation (principal); I10 Essential (primary) hypertension; I25.10 Atherosclerotic heart disease of native coronary artery without angina pectoris; E78.00 Pure hypercholesterolemia, unspecified; Z87.891 Personal history of nicotine dependence; Z79.82 Long term (current) use of aspirin; Z79.899 Other long term (current) drug therapy; Z95.5 Presence of coronary angioplasty implant and graft
CPT/HCPCS: 71045; 80048; 84484; 85025; 93005; 94640; 96374; 99284

== ENCOUNTER 2022-10-14 15:19 | Observation (INO) | payer MEDICARE, SELFPAY ==
[2016-11-25 14:44] VITALS: BMI 21.6
[2022-10-14] VITALS (8 sets, daily range): BP systolic 81–141; BP diastolic 45–76; PULSE 72–81; RESP 16–20; TEMP 36.2–36.8; O2SAT 89–99; BMI 21.9; BMI 26.4
--- NOTE | 2022-10-14 16:22 | EKG12_ITS ---
Test Reason : Blood Pressure : / mmHG Vent. Rate : 074 BPM Atrial Rate : 074 BPM P-R Int : 124 ms QRS Dur : 082 ms QT Int : 382 ms P-R-T Axes : 048 030 062 degrees QTc Int : 424 ms Normal sinus rhythm Normal ECG Confirmed by ELDA BALTAZAR, LINDA ([id number]), managing editor MARLA SUTHERLAND ([id number]) on 10/16/2022 1:25:38 PM Referred By: JAKOB Confirmed By:BONNIE SCHROEDER MD
--- NOTE | 2022-10-14 16:23 | EX.ED.DYSGE1 ---
HPI History of Present Illness Chief Complaint: Edema Detail of Chief Complaint: Leg edema Informant: patient Narrative Narrative: Patient presents with bilateral leg edema for about 2 weeks. Patient was seen by orthopedics today and referred to the emergency department for evaluation. Patient states that she broke her right ankle 2 weeks ago. Patient has been walking with a walker. Patient states the swelling in her left leg started 3 to 4 days after she broke her ankle. She noticed a rash about a week ago to both lower extremities. Patient tells me that 2 days ago she had a venous Doppler of both lower extremities and were negative for DVT. She denies fevers or chills or sweats. She does complain of some shortness of breath. She denies history of CHF or renal failure. [facility] Medical History (Updated 10/14/22 @ 18:[address] Steven Sprague, ) Atherosclerosis of coronary artery of [place] heart without angina pectoris Benign essential HTN Bilateral carotid bruits COPD (chronic obstructive pulmonary disease) Left carotid artery stenosis Nicotine dependence Pure hypercholesterolemia Home Medications aspirin 81 mg tablet,delayed release 81 mg PO DAILY@0800 10/12/13 [History Last Taken 11/25/16 07:00] nitroglycerin 0.4 mg sublingual tablet 0.4 mg sublingual Q5-15M PRN chest pain #25 tabs 12/06/17 [Rx Last Taken Unknown] albuterol sulfate 90 mcg/actuation aerosol inhaler (Ventolin HFA) 2 puff inhalation Q6H PRN shortness of breath or wheezing 11/05/21 [History Last Taken Unknown] fluticasone fur. 100 mcg-umeclid 62.5 mcg-vilant 25 mcg inhalat.powder (Trelegy Ellipta) 1 inh inhalation DAILY 11/05/21 [History Last Taken Unknown] gabapentin 600 mg tablet 600 mg PO TID 11/05/21 [History Last Taken Unknown] furosemide 20 mg tablet 20 mg PO DAILY #90 tabs 02/04/22 [Rx Last Taken Unknown] rosuvastatin 10 mg tablet 10 mg PO QHS #90 tabs 02/27/22 [Rx Last Taken 09/15/22] carvedilol 25 mg tablet 25 mg PO BID #180 tabs 05/14/22 [Rx Last Taken Unknown] lisinopril 40 mg tablet 40 mg PO DAILY #90 tabs 08/24/22 [Rx Last Taken Unknown] albuterol sulfate 2.5 mg/3 mL (0.083 %) solution for nebulization 2.5 mg inhalation TID PRN bronchospasm 09/03/22 [History Last Taken Unknown] albuterol sulfate 90 mcg/actuation aerosol inhaler (Ventolin HFA) 1 - 2 puff inhalation Q4H PRN PRN Wheezing 7 days #1 inh 09/16/22 [Rx Last Taken Unknown] guaifenesin 1,200 mg tablet, extended release 12 hr (Mucinex) 1,200 mg PO BID 09/16/22 [History Last Taken 09/16/22] prednisone 20 mg tablet 60 mg (3 x 20 mg) PO BID 7 days #42 TABLETS 09/16/22 [Rx Last Taken Unknown] Allergy/AdvReac Type Severity Reaction Status Date / Time No Known Allergies Allergy Verified 10/14/22 15:27 Family History Father CAD (coronary artery disease) from [place] Sister PVD (peripheral vascular disease) 1 sister had carotid endarterectomies Surgical History History of appendectomy History of carpal tunnel surgery History of coronary artery stent placement (11/25/16) left lung partial lobectomy Social History Smoking Status: Former smoker quit date: 10/13/13 alcohol intake: current alcohol intake frequency: 3 or more drinks per day Alcohol type: hard liquor caffeine: Yes Type: coffee Number of servings: 4 ROS ROS ED Review of Systems ROS Unobtainable: other Constitutional Constitutional ED: Reports lethargy; Denies chills, fever(s), sweats or weight loss Eyes Eyes: Denies blurry vision, change in vision or diplopia ENT ENT ED: Denies rhinorrhea or sore throat Cardiovascular Cardiovascular: Denies chest pain, orthopnea or racing heartbeat Respiratory/Chest Respiratory/Chest: Reports dyspnea and dyspnea on exertion; Denies cough, orthopnea or sputum Gastrointestinal Gastrointestinal: Denies abdominal pain, diarrhea, nausea or vomiting Genitourinary Genitourinary ED: Denies dysuria, hematuria or urinary frequency Musculoskeletal Musculoskeletal: Denies arthralgias, back pain, myalgias or neck pain Integumentary Reports rash and other Details: Lower extremity edema and rash to both lower extremities ; Denies abscess or Abrasions Neurologic Neurologic: Denies headache(s) or weakness Psychiatric Psychiatric: Denies anxiety, depression or suicidal thoughts Endocrine Endocrinology: Denies polydipsia, polyphagia or polyuria Hematologic/Lymphatic Hematologic/Lymphatic: Denies easy bleeding, easy bruising or lymphadenopathy Allergic/Immunologic Allergic/Immunologic ED: Denies mouth swelling, tongue swelling or urticaria EXAM Physical Exam Const Vital Signs: 10/14/22 15:20 10/14/22 16:34 10/14/22 16:52 Temperature 97.2 F L Temperature Source Temporal Pulse Rate 79 76 Pulse Rate [Lying] Pulse Rate [Sitting (for 1 minute prior to obtaining)] Pulse Rate [Standing (for 1 minute prior to obtaining)] Respiratory Rate 16 20 H Respiratory Pattern Normal Blood Pressure 100/74 81/69 L Blood Pressure [Lying] Blood Pressure [Sitting (for 1 minute prior to obtaining)] Blood Pressure [Standing (for 1 minute prior to obtaining)] Blood Pressure Mean 82 73 Blood Pressure Mean [Lying] Blood Pressure Mean [Sitting (for 1 minute prior to obtaining)] Blood Pressure Mean [Standing (for 1 minute prior to obtaining)] Pulse Ox 92 89 Oxygen Delivery Method Room Air Room Air 10/14/22 17:08 10/14/22 18:10 Temperature Temperature Source Pulse Rate 80 Pulse Rate [Lying] 72 Pulse Rate [Sitting (for 1 minute prior to obtaining)] 73 Pulse Rate [Standing (for 1 minute prior to obtaining)] 74 Respiratory Rate 16 Respiratory Pattern Blood Pressure 92/45 L Blood Pressure [Lying] 111/61 Blood Pressure [Sitting (for 1 minute prior to obtaining)] 97/75 Blood Pressure [Standing (for 1 minute prior to obtaining)] 99/62 Blood Pressure Mean 60 Blood Pressure Mean [Lying] 77 Blood Pressure Mean [Sitting (for 1 minute prior to obtaining)] 82 Blood Pressure Mean [Standing (for 1 minute prior to obtaining)] 74 Pulse Ox 90 Oxygen Delivery Method Room Air Positive well nourished and well developed General Appearance ED: well developed and NAD HEENT Reports TM's clear and moist mucous membranes normocephalic and atraumatic; Negative for trauma or tenderness Tympanic Membrane ED: Yes TM's clear Eyes PERRL and EOMs intact bilaterally General Eye ED: Negative for pale conjunctiva or scleral icterus Neck no lymphadenopathy, supple and no JVD General: Negative for tenderness Chest Wall inspection of chest normal and palpation of chest normal Chest: Negative for tenderness Resp normal respiratory effort and clear to auscultation bilaterally Resp Narrative: Rales in both bases Effort and Inspection: Negative for respiratory distress or pain with movement Auscultation: rales; Negative for rhonchi, wheezes or diminished lung sounds Cardio regular rate, regular rhythm, S1 normal heart sound, S2 normal heart sound and no murmurs Peripheral Pulses: pulses 2+ throughout GI normal to inspection, nondistended, normoactive bowel sounds, soft to palpation, non-tender, non-distended and no masses Back/Spine no CVA tenderness and no thoracic nor lumbar tenderness Extremity normal to inspection General Extremety ED: Negative for edema General Extremity: Negative for edema Neuro oriented x3, CN's II-XII intact bilaterally, no sensory deficits noted and gait normal Sensorium / Orientation: awake, alert, oriented to person, oriented to place and oriented to time Motor Exam: strength 5/5 throughout and strength abnormal Psych mental status grossly normal Skin no rashes or lesions noted and no wounds MDM MDM MDM Narrative Medical decision making narrative: Patient with lower extremity edema and some complaint of shortness of breath although she does have history of COPD. She is not on home O2. O2 sat marginal around 88 to 90%. She was placed on 2 L nasal cannula O2. CBC with differential obtained showing a 6.0 with hemoglobin of 10 and platelet count of 236. Chemistries unremarkable. BUN 14 and creatinine 1.22. LFTs unremarkable. BNP was normal at 62. Troponin normal at 5. Venous Dopplers of lower extremities were negative for DVT. Patient denied injury to the left lower extremity but I did order x-rays of the left tib-fib and left foot to evaluate further. Etiology of the edema in both legs unclear although may be due to venous stasis from decreased ambulation since her ankle fracture on the right. The rash on her extremities appears almost vasculitic rather than cellulitic. I do not think she has cellulitis. Patient case discussed with hospitalist will evaluate patient for admission as she was symptomatic with standing and orthostatic blood pressures. Despite 500 cc fluid bolus for pressure did drop into the 90s systolic with standing and she complained of dizziness. Lab Data Labs: Laboratory Results - last 24 hr 10/14/22 15:50 WBC 6.0 RBC 3.25 L Hgb 10.3 L Hct 31.9 L MCV 98.2 MCH 31.7 MCHC 32.3 RDW Std Deviation 49.0 H RDW Coeff of Franny 13.7 Plt Count 236 MPV 10.4 Immature Gran % (Auto) 3.500 H Neut % (Auto) 64.3 Lymph % (Auto) 15.6 L Bremer % (Auto) 13.4 H Eos % (Auto) 2.5 Baso % (Auto) 0.7 Absolute Neuts (auto) 3.9 Absolute Lymphs (auto) 0.94 Nucleated RBC % 0 Sodium 132 L Potassium 3.5 Chloride 94 L Carbon Dioxide 34.0 H Anion Gap 4 L BUN 14 Creatinine 1.22 H Estim Creat Clear Calc 43.51 Est GFR (MDRD) Af Amer 56 L Est GFR (MDRD) Non-Af 47 L BUN/Creatinine Ratio 11.5 Glucose 145 H Calcium 8.7 Total Bilirubin 0.90 AST 11 L ALT 15 Alkaline Phosphatase 99 Troponin I High Sens 5 B-Natriuretic Peptide 62.0 Total Protein 6.3 L Albumin 2.6 L Globulin 3.7 Albumin/Globulin Ratio 0.7 L Radiography Diagnostic Testing: Clinical Impression(s) from Imaging Studies Chest X-Ray 10/14/22 16:35 IMPRESSION: No acute findings in the chest. Electronically Signed: Dario Vogel MD at 16:47 EDT , Venous Duplex 10/14/22 17:32 IMPRESSION: There is no demonstrated deep venous thrombosis. Leg edema. Electronically Signed: Dario Vogel MD at 18:27 EDT , 1 view chest x-ray obtained interpreted by myself as no evidence of infiltrate or pneumothorax or acute disease process. Radiology in agreement. EKG Initial EKG: Attestation: I personally reviewed and interpreted this EKG as follows: Comments: Sinus rhythm with a rate of 74 bpm with no acute ST segment changes Discharge Plan Dx/Rx/DC Orders Clinical Impression: Leg edema, Dizziness, Hypotension Disposition Disposition: Acute Care Hospital [facility]
--- NOTE | 2022-10-14 16:35 | RAD_ITS ---
EXAM: XR CHEST, 1 VIEW CLINICAL INDICATION: dyspnea TECHNIQUE: Frontal view of the chest. COMPARISON: 7.5.23 FINDINGS: LUNGS AND PLEURAL SPACES: The lung driscoll are hyperexpanded. Stable 5 mm nodule in the left midlung. No pneumothorax. No effusion. HEART: Unremarkable. Cardiac silhouette not enlarged. MEDIASTINUM: Central airways and mediastinal contour are unremarkable. BONES/JOINTS: Unremarkable. SOFT TISSUES: Unremarkable. RAD/Chest 1 View (Portable) IMPRESSION: No acute findings in the chest. Electronically Signed: Dario Vogel MD at 16:47 EDT ,
[2022-10-14 16:42] LABS: Absolute Lymphocyte Count 0.94 X10^3/uL (0.83-4.51); Absolute Neutrophil Count 3.9 X10^3/uL (2.0-7.7); Basophil# 0.04 X10^3/uL; Basophil% 0.7 % (0-1); Eosinophil# 0.15 X10^3/uL; Eosinophils% 2.5 % (0-5); Hematocrit 31.9 % (37-47); Hemoglobin 10.3 g/dL (12.0-15.0); Lymphocyte # 0.94 X10^3/ul (0.83-4.51); Lymphocyte % 15.6 % (19-41); Mean Corp Hgb Conc 32.3 g/dL (32-36); Mean Corpuscular Hgb 31.7 pg (27.0-32.0); Mean Corpuscular Volume 98.2 fL (81-99); Mean Platelet Vol. 10.4 fl (6.2-12.0); Monocyte# 0.81 X10^3/uL; Monocyte% 13.4 % (0-10); NRBC Flagged by Analyzer 0 % (0-5); Neutrophil # 3.89 X10^3/uL (2.7-7.7); Neutrophil % 64.3 % (47-70); Platelet Count 236 K/mm3 (150-450); RBC Distribution Width CV 13.7 % (11.6-14.6); Red Blood Count 3.25 M/mm3 (4.2-5.4)
[2022-10-14 17:03] LABS: ALB/GLOB Ratio 0.7 RATIO (0.9-2.4); AST(SGOT) 11 U/L (15-37); Alanine Aminotransfer ALT/SGPT 15 U/L (13-56); Albumin, Serum 2.6 g/dL (3.2-5.0); Alkaline Phosphatase 99 U/L (45-117); Anion Gap 4 (5-15); BUN 14 mg/dL (7-18); BUN/Creat Ratio 11.5 RATIO (10-20); Calcium,Total 8.7 mg/dL (8.5-10.1); Chloride 94 mmol/L (98-107); Creatinine, Serum 1.22 mg/dL (0.55-1.02); EST Glomerular Filtration Rate 47 mL/min (>60); Est Glom Filt Rate - Afr Amer 56 mL/min (>60); Estimated Creatinine Clearance 43.51 ml/min; Globulin 3.7 g/dL (2.2-4.2); Glucose 145 mg/dL (74-106); Potassium 3.5 mmol/L (3.5-5.1); Protein, Total 6.3 g/dL (6.4-8.2); Sodium Level 132 mmol/L (136-145); Troponin-I HS 5 pg/mL (3.0-54.0)
--- NOTE | 2022-10-14 17:32 | US_ITS ---
STUDY: VENOUS DOPPLER ULTRASOUND - BILATERAL LOWER EXTREMITY REASON FOR EXAM: Female, 67 years old. LEG PAIN AND SWELLING -- SWELLING TECHNIQUE: Ultrasound evaluation of the deep vein system to include hussein-scale imaging and compression was performed. Hussein-scale imaging and Doppler sonographic evaluation, including duplex spectral analysis and qualitative color flow sonography, was performed. COMPARISON: 07.14.18. FINDINGS: Common Femoral Vein: Normal compression, spontaneity and augmentation. Normal color Doppler. Common Femoral Vein/Greater Saphenous Junction: Normal compression, spontaneity and augmentation. Normal color Doppler. Superficial Femoral Proximal: Normal compression, spontaneity and augmentation. Normal color Doppler. Superficial Femoral Middle: Normal compression, spontaneity and augmentation. Normal color Doppler. Superficial Femoral Distal: Normal compression, spontaneity and augmentation. Normal color Doppler. Popliteal Vein: Normal compression, spontaneity and augmentation. Normal color Doppler. Posterior Tibial Vein: Normal compression, spontaneity and augmentation. Normal color Doppler. Peroneal Vein: Normal compression, spontaneity and augmentation. Normal color Doppler. Leg edema. There is no demonstrated deep venous thrombosis. US/Venous Duplex Imag/Andrea Extrem IMPRESSION: There is no demonstrated deep venous thrombosis. Leg edema. Electronically Signed: Dario Vogel MD at 18:27 EDT ,
--- NOTE | 2022-10-14 18:26 | HP.PCM.HOS_ITS ---
HPI - General General Date of Admission: 10/14/22 Date of Service: 10/14/22 Chief Complaint: Bilateral leg swelling started on left leg along with a rash for 2 weeks HPI Narrative LIZZY PEACOCK, is a 67 F was sent to ED from [place] [facility] for bilateral leg swelling, left more than right for 2 weeks after she had fracture of right f ibula about 3 weeks ago. She is on conservative management after right fibula fracture and had mild right ankle/lower leg swelling from fracture for last 3 weeks. Her left leg started swelling for last 2 weeks and appearance of erythematous rash with blister at the same time. This is progressive and spreads proximally to involve below her right knee and also at. In the right foot and ankle region. Patient denies any fever or chills. She has mild pain in both legs below knee which in right ankle is from fracture. She also had COPD exacerbation about 3-4 weeks ago and was treated with pred nisone tapering dose along with bronchodilator. She completed prednisone given by Dr. Adan Landin about 1 and half weeks ago and is started Roflumilast on 10/10/2022 but rash appeared before that. She denies systemic symptoms including headache, nausea, vomiting or fever. She denies any walking in the leal or any traumatic event besides right ankle fracture. She also had venous Doppler done about 3 weeks ago at the time of fracture and no blood clot was found. She has history of coronary artery disease status post stent and follows [facility] and last visit was in 09/03/2022. She denies history of heart failure and in ED today, BNP was normal and chest x-ray which was individually reviewed and reported normal. Patient is further admitted. [facility] Medical History (Updated 10/14/22 @ 20:[address] Chuy Houston MD) Atherosclerosis of coronary artery of [place] heart without angina pectoris Benign essential HTN Bilateral carotid bruits COPD (chronic obstructive pulmonary disease) Left carotid artery stenosis Nicotine dependence Pure hypercholesterolemia Home Medications aspirin 81 mg tablet,delayed release 81 mg PO DAILY@0800 10/12/13 [History Last Taken 11/25/16 07:00] fluticasone fur. 100 mcg-umeclid 62.5 mcg-vilant 25 mcg inhalat.powder (Trelegy Ellipta) 1 inh inhalation DAILY 08/24/22 [History Last Taken Unknown] gabapentin 600 mg tablet 600 mg PO TID 11/05/21 [History Last Taken Unknown] furosemide 20 mg tablet 20 mg PO DAILY #90 tabs 02/04/22 [Rx Last Taken Unknown] rosuvastatin 10 mg tablet 10 mg PO QHS #90 tabs 02/27/22 [Rx Last Taken 09/15/22] lisinopril 40 mg tablet 40 mg PO DAILY #90 tabs 08/24/22 [Rx Last Taken Unknown] albuterol sulfate 90 mcg/actuation aerosol inhaler (Ventolin HFA) 1 - 2 puff inhalation Q4H PRN PRN Wheezing 7 days #1 inh 09/16/22 [Rx Last Taken Unknown] guaifenesin 1,200 mg tablet, extended release 12 hr (Mucinex) 1,200 mg PO BID 09/16/22 [History Last Taken 09/16/22] carvedilol 25 mg tablet 12.5 mg PO BID 10/14/22 [History Last Taken Unknown] Allergy/AdvReac Type Severity Reaction Status Date / Time No Known Allergies Allergy Verified 10/14/22 15:27 Family History Father CAD (coronary artery disease) from [place] Sister PVD (peripheral vascular disease) 1 sister had carotid endarterectomies Surgical History History of appendectomy History of carpal tunnel surgery History of coronary artery stent placement (11/25/16) left lung partial lobectomy Social History Smoking Status: Former smoker quit date: 10/13/13 alcohol intake: current alcohol intake frequency: 3 or more drinks per day Alcohol type: hard liquor caffeine: Yes Type: coffee Number of servings: 4 ROS ROS Narrative Constitutional: Reports fatigue and weakness. No fever. HEENT: Reports systems reviewed and no addt'l complaints, except as documented Respiratory/Chest: Mild chronic cough with clear sputum production, mild shortness of breath and wheezing after recent COPD exacerbation.Not on home oxygen. CVS: No chest pain pressure or tightness. Gastrointestinal: Denies coffee ground emesis, hematemesis or vomiting Genitourinary: Denies burning urination or new urinary tract symptoms Musculoskeletal: As described in HPI. Neurologic: Denies seizure-like symptoms. skin: Rash as described in HPI Endocrinology: Reports systems reviewed and no addt'l complaints, except as documented Hematologic/Lymphatic: Reports systems reviewed and no addt'l complaints, except as documented Rest 14 ROS are negative except as mentioned in HPI Vital Signs Vital Signs Vital Signs: 10/14/22 15:20 10/14/22 16:34 10/14/22 16:52 Temperature 97.2 F L Temperature Source Temporal Pulse Rate 79 76 Pulse Rate [Lying] Pulse Rate [Sitting (for 1 minute prior to obtaining)] Pulse Rate [Standing (for 1 minute prior to obtaining)] Respiratory Rate 16 20 H Respiratory Pattern Normal Blood Pressure 100/74 81/69 L Blood Pressure [Lying] Blood Pressure [Sitting (for 1 minute prior to obtaining)] Blood Pressure [Standing (for 1 minute prior to obtaining)] Blood Pressure Mean 82 73 Blood Pressure Mean [Lying] Blood Pressure Mean [Sitting (for 1 minute prior to obtaining)] Blood Pressure Mean [Standing (for 1 minute prior to obtaining)] Pulse Ox 92 89 Oxygen Delivery Method Room Air Room Air 10/14/22 17:08 10/14/22 18:10 Temperature Temperature Source Pulse Rate 80 Pulse Rate [Lying] 72 Pulse Rate [Sitting (for 1 minute prior to obtaining)] 73 Pulse Rate [Standing (for 1 minute prior to obtaining)] 74 Respiratory Rate 16 Respiratory Pattern Blood Pressure 92/45 L Blood Pressure [Lying] 111/61 Blood Pressure [Sitting (for 1 minute prior to obtaining)] 97/75 Blood Pressure [Standing (for 1 minute prior to obtaining)] 99/62 Blood Pressure Mean 60 Blood Pressure Mean [Lying] 77 Blood Pressure Mean [Sitting (for 1 minute prior to obtaining)] 82 Blood Pressure Mean [Standing (for 1 minute prior to obtaining)] 74 Pulse Ox 90 Oxygen Delivery Method Room Air Weight Weight: 140 lb Body Mass Index (BMI) 21.9 Physical Exam Narrative General: Alert, Oriented x3, Cooperative HEENT: Atraumatic, PERRLA, EOMI, Normocephalic Oral: Oral mucosa dry no Gingival or Mucosal Lesions/ Ulcerations Neck: Supple, No JVD, Negative Carotid Bruits Lungs: Air entry diminished in bilateral lungs. Bilateral expiratory rhonchi. Cardiovascular: Regular rate, Regular Rhythm, Normal S1, Normal S2, No murmurs Abdomen: Bowel Sounds Present, Soft, Non Tender, Non-Distended : No renal angle tenderness. No suprapubic tenderness. Extremities: No edema, Capillary Refill Less than 3 Seconds Skin: Erythematous rash, maculopapular with blisters in both lower legs right more than left. Spreading proximally from right foot to below knee. Musculoskeletal: Right ankle fracture/fibular fracture. Tenderness present over right ankle but also present in the left foot and left leg. ROM restricted over right foot. Neurological: Cranial nerves II-XII grossly intact, DTR 2+/4. No acute focal neurological deficit. Psych/Mental Status: Flat affect. Results Lab / Micro Data 10/14/22 15:50 10/14/22 15:50 Labs: Laboratory Results - last 24 hr 10/14/22 15:50: WBC 6.0, RBC 3.25 L, Hgb 10.3 L, Hct 31.9 L, MCV 98.2, MCH 31.7, MCHC 32.3, RDW Std Deviation 49.0 H, RDW Coeff of Franny 13.7, Plt Count 236, MPV 10.4, Immature Gran % (Auto) 3.500 H, Neut % (Auto) 64.3, Lymph % (Auto) 15.6 L, Davis % (Auto) 13.4 H, Eos % (Auto) 2.5, Baso % (Auto) 0.7, Absolute Neuts (auto) 3.9, Absolute Lymphs (auto) 0.94, Nucleated RBC % 0, Sodium 132 L, Potassium 3.5, Chloride 94 L, Carbon Dioxide 34.0 H, Anion Gap 4 L, BUN 14, Creatinine 1.22 H, Estim Creat Clear Calc 43.51, Est GFR (MDRD) Af Amer 56 L, Est GFR (MDRD) Non-Af 47 L, BUN/Creatinine Ratio 11.5, Glucose 145 H, Calcium 8.7, Total Bilirubin 0.90, AST 11 L, ALT 15, Alkaline Phosphatase 99, Troponin I High Sens 5, B-Natriuretic Peptide 62.0, Total Protein 6.3 L, Albumin 2.6 L, Globulin 3.7, Albumin/Globulin Ratio 0.7 L Radiology Impression Chest X-Ray 10/14/22 16:35 IMPRESSION: No acute findings in the chest. Electronically Signed: Dario Vogel MD at 16:47 EDT , Assessment & Plan Assessment/Plan (1) Hypotension: QUALIFIERS: Hypotension type: idiopathic hypotension Qualified Code(s): I95.0 - Idiopathic hypotension (2) Localized swelling of both lower legs: PLAN: Plan 67-year-old female is being admitted for evaluation of bilateral leg swelling, left more than right with epilation of erythematous rash. 1. Bilateral leg swelling left more than right with erythematous rash, exact etiology unclear but seems inflammatory localized edema: Patient is being admitted in PCU. Does not have history of autoimmune disorder and does not suspect starting new medication prior to rash. She was on prednisone tapering dose before the rash started. Her hemoglobin dropped from baseline 1.9 g on October 06, 2022 to 10.3 g but no change in leukocyte count. Her platelet count increased from 1 32,000-236,000. It also shows 3.5% immature granulocyte increased from 1.1%. I discussed with ID Dr. Martin and decided to observe without antibiotics. I ordered hemolytic anemia panel including reticulocyte panel, direct Ronald test, haptoglobin and LDH. Empirically Solu-Medrol 60 mg IV 1 dose ordered. I do not think patient bilateral leg swelling is related to heart failure exacerbation as BNP is normal. Last echo in August 2019 reported EF 65%, stage I diastolic dysfunction, mild eccentric MR mild TR, RVSP 29 mmHg. Repeat 2D echo is ordered. 2.. Recovering from recent COPD exacerbation 3 weeks ago: Continue bronchodilator DuoNeb every 6 hourly, Trelegy Ellipta. Incentive spirometry and Mucinex. Hold Roflumilast. 3. Transient hypotension: In triage, blood pressure was low 100/74, 81/69 and 92/45. Patient was given 500 normal saline bolus and blood pressure recovered 141/76. Orthostatic vitals did not show significant change. Therefore I will not give him Lasix. Patient on furosemide 20 mg daily at home. Continue normal saline 75 mill per hour for 1 L. 4. Coronary artery status post cardiac stent last one in 2016. Patient does not have chest pain or symptoms suggestive of angina. Continue cardiac me dications. 5. Other comorbidities include dyslipidemia, bilateral carotid stenosis/bruit. Carotid duplex in Apretude 23 shows moderate left ICA and mild right ICA carotid stenosis. Patient on statin. DVT prophylaxis: With recent decrease in hemoglobin and suspected possible hemolytic anemia I would not give pharmacological prophylaxis and bilateral SCDs due to rash. Early ambulation encouraged. Living will/advanced directive/end of life care: Patient does not have living will or advanced directive. After discussion of benefits/risks procedures involved with full code, DNR CC arrest and DNR CC, the patient opted for full code. Patient does want artificial life support including intubation, tube feed, ventilator and/chest compression, central venous catheter, vasopressor and DC sh ock if needed Total time spent in [id number] encounter in discussion of advanced directive 17 minutes. Laboratory Results 10/14/22 15:50: WBC 6.0, RBC 3.25 L, Hgb 10.3 L, Hct 31.9 L, MCV 98.2, MCH 31.7, MCHC 32.3, RDW Std Deviation 49.0 H, RDW Coeff of Franny 13.7, Plt Count 236, MPV 10.4, Immature Gran % (Auto) 3.500 H, Neut % (Auto) 64.3, Lymph % (Auto) 15.6 L, Davis % (Auto) 13.4 H, Eos % (Auto) 2.5, Baso % (Auto) 0.7, Absolute Neuts (auto) 3.9, Absolute Lymphs (auto) 0.94, Nucleated RBC % 0, Sodium 132 L, Potassium 3.5, Chloride 94 L, Carbon Dioxide 34.0 H, Anion Gap 4 L , BUN 14, Creatinine 1.22 H, Estim Creat Clear Calc 43.51, Est GFR (MDRD) Af Amer 56 L, Est GFR (MDRD) Non-Af 47 L, BUN/Creatinine Ratio 11.5, Glucose 145 H, Calcium 8.7, Total Bilirubin 0.90, AST 11 L, ALT 15, Alkaline Phosphatase 99, Troponin I High Sens 5, B-Natriuretic Peptide 62.0, Total Protein 6.3 L, Albumin 2.6 L, Globulin 3.7, Albumin/Globulin Ratio 0.7 L Clinical Impression(s) from Imaging Studies Chest X-Ray 10/14/22 16:35 IMPRESSION: No acute findings in the chest. Charges/Coding Visit Charges Inpatient E&M: 59668 Init Hosp L3 Procedures Hospitalists Procedures: 37977 Advncd Care Plan 30 Min
--- NOTE | 2022-10-14 19:15 | RAD_ITS ---
STUDY: XR Tibia/Fibula 2 Views REASON FOR EXAM: Female, 67 years old. Pain TECHNIQUE: XR Tibia/Fibula 2 Views. LEFT COMPARISON: None. FINDINGS: Normal visualized tibia. Normal visualized fibula. Diffuse soft tissue swelling. RAD/Tibia & Fibula 2 Views IMPRESSION: Diffuse soft tissue swelling. Electronically Signed: Dario Vogel MD at 20:01 EDT ,
--- NOTE | 2022-10-14 19:15 | RAD_ITS ---
EXAM: XR LEFT FOOT COMPLETE, 3 OR MORE VIEWS CLINICAL INDICATION: swelling TECHNIQUE: Frontal, lateral and oblique views of the left foot. COMPARISON: No relevant prior studies available. FINDINGS: BONES/JOINTS: Unremarkable. No acute fracture. No subluxation. Normal alignment. Preservation of the joint space. No sclerotic or destructive changes observed. SOFT TISSUES: There is non specific soft tissue swelling. No radiopaque foreign body. RAD/Foot min 3 Views IMPRESSION: There is non specific soft tissue swelling. Electronically Signed: Dario Vogel MD at 20:00 EDT ,
[2022-10-14 19:56] LABS: Bacteria 0 SEEN /hpf (None Seen); Mucous, Urine 0 SEEN /hpf (<or=2+); Red Blood Cells-Urine 0 SEEN /hpf (0-5); White Blood Cells 0 SEEN /hpf (0-5)
[2022-10-14 19:58] LABS: Color, Urine Yellow (Yellow); Glucose, Dipstick Normal (Normal); Ketone-Dipstick Negative (Negative); Leukocyte Esterase-Dipstick Negative /ul (Negative); Nitrite-Dipstick Negative (Negative); Occult Blood-Urine Negative /ul (Negative); Protein-Dipstick Negative (Negative); Urine Bilirubin Dipstick Negative (Negative); Urine Clarity Clear (Clear); Urine Urobilinogen Normal (Normal)
[2022-10-14 20:03] LABS: Squamous Epithelial Cells - UA 0-5 SEEN /hpf (5-10)
[2022-10-14 20:57] LABS: Platelet Count 183 K/mm3 (150-450); RET-HE 32.9 pg (30-35)
[2022-10-14 21:14] LABS: CPK Total, Creatine Kinase 37 U/L (26-192)
[2022-10-14 21:17] LABS: LDH 226 U/L (84-246)
[2022-10-14] MEDS: 0.9% Normal Saline 1,000 ML 75 ML IV (23:07)
[2022-10-14] MEDS: Carvedilol 25 MG Tablet 12.5 MG PO (23:08)
[2022-10-14] MEDS: guaiFENesin 1,200 MG Tablet 1200 MG PO (23:08)
[2022-10-14] MEDS: Potassium Chloride Oral Tablet 20 MEQ 40 MEQ PO (23:08)
[2022-10-14] MEDS: Atorvastatin Calcium 20 MG Tablet PO (23:09)
[2022-10-14] MEDS: Ipratropium/Albuterol Sulfate 3 ML AMPUL.NEB INHALATION (23:12)
[2022-10-15] VITALS (8 sets, daily range): BP systolic 127–159; BP diastolic 76–91; PULSE 85–103; RESP 16–18; TEMP 36.1–36.6; O2SAT 93–98; BMI 23.9
[2022-10-15] MEDS: MethylPREDNISolone 125 MG/2 ML Vial 60 MG IV (01:48)
[2022-10-15 05:46] LABS: Absolute Lymphocyte Count 0.56 X10^3/uL (0.83-4.51); Absolute Neutrophil Count 3.9 X10^3/uL (2.0-7.7); Basophil# 0.03 X10^3/uL; Basophil% 0.6 % (0-1); Eosinophil# 0.02 X10^3/uL; Eosinophils% 0.4 % (0-5); Hematocrit 32.2 % (37-47); Hemoglobin 10.5 g/dL (12.0-15.0); Lymphocyte # 0.56 X10^3/ul (0.83-4.51); Lymphocyte % 11.5 % (19-41); Mean Corp Hgb Conc 32.6 g/dL (32-36); Mean Corpuscular Hgb 32.1 pg (27.0-32.0); Mean Corpuscular Volume 98.5 fL (81-99); Monocyte% 4.1 % (0-10); NRBC Flagged by Analyzer 0 % (0-5); Neutrophil # 3.86 X10^3/uL (2.7-7.7); Neutrophil % 79.5 % (47-70); POSITIVE DIFFERENTIAL YES; Platelet Count 224 K/mm3 (150-450); RBC Distribution Width CV 13.9 % (11.6-14.6); RBC Distribution Width SD 50.3 fl (35.1-43.9); Red Blood Count 3.27 M/mm3 (4.2-5.4); White Blood Count 4.9 K/mm3 (4.4-11.0)
[2022-10-15 05:52] LABS: Differential Indicated SCAN CRITERIA MET
[2022-10-15 06:35] LABS: Anion Gap 5 (5-15); BUN 12 mg/dL (7-18); BUN/Creat Ratio 12.9 RATIO (10-20); Calcium,Total 8.5 mg/dL (8.5-10.1); Chloride 102 mmol/L (98-107); Creatinine, Serum 0.93 mg/dL (0.55-1.02); EST Glomerular Filtration Rate 64 mL/min (>60); Est Glom Filt Rate - Afr Amer 77 mL/min (>60); Estimated Creatinine Clearance 57.08 ml/min; Glucose 166 mg/dL (74-106); Potassium 4.1 mmol/L (3.5-5.1); Sodium Level 136 mmol/L (136-145); Thyroid Stim Hormone (TSH) 2.02 uIU/mL (0.358-3.74)
[2022-10-15] MEDS: Ipratropium/Albuterol Sulfate 3 ML AMPUL.NEB INHALATION (06:41)
[2022-10-15] MEDS: Budesonide Respules 0.5 MG/2 ML AMPUL.NEB. INHALATION (06:41)
[2022-10-15 06:48] LABS: Differential Comment SCANNED
--- NOTE | 2022-10-15 08:28 | PN.HOSP_ITS ---
Reason for Visit Reason for Visit: Diagnoses Idiopathic hypotension (10/14/22) Localized swelling, mass and lump, lower limb, bilateral (10/14/22) Subjective Subjective Feels like swelling is better than yesterday but still has the same purple dis coloration on left leg Objective Data Objective Data Vital Signs: Vital Signs Temp Pulse Resp BP Pulse Ox O2 Del Method O2 Flow Rate 97 F L 85 18 135/91 H 95 Nasal Cannula 2 10/15/22 06:00 10/15/22 06:42 10/15/22 06:42 10/15/22 06:00 10/15/22 06:42 10/15/22 06:42 10/15/22 06:42 Oxygen Flow Rate (L/min) 2 Oxygen Delivery Method Nasal Cannula Weight: 69.4 kg Body Mass Index (BMI) 23.9 Intake & Output: Intake and Output for Last 24 Hours 10/13/22 10/14/22 10/15/22 23:59 23:59 23:59 Intake Total 500 / 500 Output Total 0 / 0 Balance 500 / 500 0 / 0 Lab / Micro Data 10/15/22 05:29 10/15/22 05:29 Labs: Laboratory Results - last 24 hr 10/14/22 15:50: WBC 6.0, RBC 3.25 L, Hgb 10.3 L, Hct 31.9 L, MCV 98.2, MCH 31.7, MCHC 32.3, RDW Std Deviation 49.0 H, RDW Coeff of Franny 13.7, Plt Count 236, MPV 10.4, Immature Gran % (Auto) 3.500 H, Neut % (Auto) 64.3, Lymph % (Auto) 15.6 L, Pierce % (Auto) 13.4 H, Eos % (Auto) 2.5, Baso % (Auto) 0.7, Absolute Neuts (auto) 3.9, Absolute Lymphs (auto) 0.94, Nucleated RBC % 0, Sodium 132 L, Potassium 3.5, Chloride 94 L, Carbon Dioxide 34.0 H, Anion Gap 4 L, BUN 14, Creatinine 1.22 H, Estim Creat Clear Calc 43.51, Est GFR (MDRD) Af Amer 56 L, Est GFR (MDRD) Non-Af 47 L, BUN/Creatinine Ratio 11.5, Glucose 145 H, Calcium 8.7, Phosphorus 3.0, Magnesium 2.0, Total Bilirubin 0.90, AST 11 L, ALT 15, Alkaline Phosphatase 99, Troponin I High Sens 5, B-Natriuretic Peptide 62.0, Total Protein 6.3 L, Albumin 2.6 L, Globulin 3.7, Albumin/Globulin Ratio 0.7 L 10/14/22 19:50: Urine Color Yellow, Urine Clarity Clear, Urine pH 6.0, Ur Specific [place] 1.010, Urine Protein Negative, Urine Glucose (UA) Normal, Urine Ketones Negative, Urine Occult Blood Negative, Urine Nitrite Negative, Urine Bilirubin Negative, Urine Urobilinogen Normal, Ur Leukocyte Esterase Negative, Urine RBC 0 SEEN, Urine WBC 0 SEEN, Ur Squamous Epith Cells 0-5 SEEN, Urine Bacteria 0 SEEN, Urine Mucus 0 SEEN 10/14/22 20:50: Retic Count 3.70 H, Immature Retic Fraction 23.80 H, Retic Hgb Equivalent 32.9, Magnesium 2.0, Lactate Dehydrogenase 226, Total Creatine Kinase 37, Direct Antiglob Test NEG w/POLYSPECIFIC 10/14/22 22:45: Antibody Screen NEGATIVE 10/15/22 05:29: WBC 4.9, RBC 3.27 L, Hgb 10.5 L, Hct 32.2 L, MCV 98.5, MCH 32.1 H, MCHC 32.6, RDW Std Deviation 50.3 H, RDW Coeff of Franny 13.9, Plt Count 224, MPV 10.0, Immature Gran % (Auto) 3.900 H, Neut % (Auto) 79.5 H, Lymph % (Auto) 11.5 L, Pierce % (Auto) 4.1, Eos % (Auto) 0.4, Baso % (Auto) 0.6, Absolute Neuts (auto) 3.9, Absolute Lymphs (auto) 0.56 L, Nucleated RBC % 0, Differential Comment SCANNED, Sodium 136, Potassium 4.1, Chloride 102, Carbon Dioxide 29.0, Anion Gap 5, BUN 12, Creatinine 0.93, Estim Creat Clear Calc 57.08, Est GFR ( RD) Af Amer 77, Est GFR (MDRD) Non-Af 64, BUN/Creatinine Ratio 12.9, Glucose 166 H, Calcium 8.5, TSH 2.02 Radiography Diagnostic Testing: Radiology Impression Chest X-Ray 10/14/22 16:35 IMPRESSION: No acute findings in the chest. Electronically Signed: Dario Vogel MD at 16:47 EDT , Venous Duplex 10/14/22 17:32 IMPRESSION: There is no demonstrated deep venous thrombosis. Leg edema. Electronically Signed: Dario Vogel MD at 18:27 EDT , Foot X-Ray 10/14/22 19:15 IMPRESSION: There is non specific soft tissue swelling. Electronically Signed: Dario Vogel MD at 20:00 EDT , Tibia/Fibula X-Ray 10/14/22 19:15 IMPRESSION: Diffuse soft tissue swelling. Electronically Signed: Dario Vogel MD at 20:01 EDT , Physical Exam Narrative General: Alert, oriented, no apparent distress HEENT: Atraumatic, normocephalic Eyes: Anicteric, normal conjunctiva, extraocular movements grossly intact Neck: Supple Respiratory: Scattered expiratory wheezes, normal respiratory effort Cardiovascular: Regular rate GI: Soft, nontender, nondistended Extremities: 1+ lower extremity edema Musculoskeletal: Moving all extremities but has pain and difficulty moving left ankle Neuro: No overt focal neurological deficits Skin: Has splotchy purple rash over left ankle, foot, extending correction up the calf as well without significant discoloration in right Psych: Cooperative Assessment & Plan Assessment/Plan (1) Hypotension: QUALIFIERS: Hypotension type: idiopathic hypotension Qualified Code(s): I95.0 - Idiopathic hypotension (2) Localized swelling of both lower legs: PLAN: Plan 67-year-old female is being admitted for evaluation of bilateral leg swelling, left more than right with epilation of erythematous rash. #Bilateral leg swelling left more than right with erythematous rash/anemia/recent R ankle fracture -Bilateral leg edema x2 weeks and was seen by orthopedics on day of admission and referred to ED for evaluation. Had broken right ankle 2 weeks prior and was walking with walker. Leg swelling in left started 3 to 4 days before broken ankle and rash lasted about a week. -Tib-fib x-ray without injury -exact etiology unclear but seems inflammatory localized edema -Patient is being admitted in PCU. Does not have history of autoimmune disorder and does not suspect starting new medication prior to rash -She was on prednisone tapering dose before the rash started -Her hemoglobin dropped from baseline 12.9 g on October 06, 2022 to 10.3 g but no change in leukocyte count. -Her platelet count increased from 132,000-236,000. It also shows 3.5% immature granulocyte increased from 1.1%. -it was discussed with ID Dr. Martin and decided to observe without antibiotics. I ordered hemolytic anemia panel including reticulocyte panel, di rect Ronald test, haptoglobin and LDH. -Empirically Solu-Medrol 60 mg IV 1 dose ordered. I do not think patient bilateral leg swelling is related to heart failure exacerbation as BNP is normal. Last echo in August 2019 reported EF 65%, stage I diastolic dysfunction, mild eccentric MR mild TR, RVSP 29 mmHg. Repeat 2D echo is ordered. -10/15: White blood cell count unchanged, ID consulted. Hemoglobin 10.5, has increased reticulocyte count with further work-up pending. Seems to have variable hemoglobin with 12.9 on 09/16 routine 09/03/2022 and 1911.6 and prior to that had low hemoglobin. Haptoglobin pending but bili normal. TSH within normal limits. We will check B12 and iron as well as folate. Had considered a nephrotic syndrome given low albumin however no protein in urine on UA continue supportive management. Venous duplex demonstrated no DVT and only commented on the leg edema. We will get ESR and CRP in the event there is a vasculitic component. Additionally given ankle pain and swelling on left with discoloration and negative xray will get MRI. #CKD stage IIIb -1.2 to on arrival and a month ago was 1.31 however this a.m. 0.93, continue trend BMP daily #Recovering from recent COPD exacerbation 3 weeks ago -Continue bronchodilator DuoNeb every 6 hourly, Trelegy Ellipta. Incentive spirometry and Mucinex. Hold Roflumilast. -10/15: O2 sat 95% on 2 L, doing well, okay to use home trelegy through pharmacy as pt finds it more helpful and has it with her presently #Transient hypotension -in triage, blood pressure was low 100/74, 81/69 and 92/45. Patient was given 500 normal saline bolus and blood pressure recovered 141/76. Orthostatic vitals did not show significant change. Therefore I will not give him Lasix. Patient on furosemide 20 mg daily at home. Continue normal saline 75 mill per hour for 1 L. -10/15: Recovered with fluids, home BP meds continued recovery #Coronary artery status post cardiac stent last one in 2017 -Patient does not have chest pain or symptoms suggestive of angina -Continue cardiac medications. #Other comorbidities include dyslipidemia, bilateral carotid stenosis/bruit. Carotid duplex in Apretude shows moderate left ICA and mild right ICA carotid stenosis. Patient on statin. DVT prophylaxis: With recent decrease in hemoglobin and suspected possible hemolytic anemia I would not give pharmacological prophylaxis and bilateral SCDs due to rash. Early ambulation encouraged. Time spent in the patient's overall evaluation,decision-making process, review of diagnostic data, adjustment of management, discussion with other providers, nursing nursing and ancillary staff involved in patient's care documentation, 57 minutes Charges/Coding Visit Charges Inpatient E&M: 48328 Subs Hosp L3
[2022-10-15] MEDS: guaiFENesin 1,200 MG Tablet 1200 MG PO ×2 (08:39→21:26)
[2022-10-15] MEDS: Enoxaparin 40 MG/0.4 ML Syringe SC (08:39)
[2022-10-15] MEDS: Carvedilol 25 MG Tablet 12.5 MG PO ×2 (08:40→21:26)
[2022-10-15] MEDS: Aspirin E.C. 81 MG Tablet PO (08:40)
[2022-10-15] MEDS: Lisinopril 40 MG Tablet PO (08:44)
[2022-10-15 08:57] LABS: Erythrocyte Sedimentation Rate 53 mm/hr (0-30)
--- NOTE | 2022-10-15 09:26 | MRI_ITS ---
INDICATION: Ankle pain and swelling, discoloration, rash -- cannot r/o underlying ifxn EXAMINATION: MRI - LEFT MR LE Joint W/O Contrast TECHNIQUE: Multiplanar and multisequence MR images of the left ankle. IV Contrast Dosage and Agent: None. COMPARISON: October 14, 2022 foot radiograph. FINDINGS: SOFT TISSUES: Diffuse subcutaneous soft tissue edema.. BONE: Talar dome intact. No fracture or marrow edema. No osteochondral lesion. JOINT: Articular cartilage intact. No joint effusion. LIGAMENTS: The syndesmotic ligaments, lateral collateral ligaments, and medial collateral ligaments are intact. TENDONS: The peroneal tendons, flexor tendons, and extensor tendons are intact with mild fluid along the posterior tibialis, flexor digitorum longus tendons both cephalad and distal to the medial malleolus. Fluid along the flexor hallucis longus tendon is nonspecific at least partially secondary to trace joint fluid.. Achilles tendon is intact with normal morphology and signal. Trace retrocalcaneal bursal fluid collection. MUSCLES: Normal bulk and signal. MISCELLANEOUS: Plantar fascia intact. Normal fat in the sinus tarsi. MRI/Lower Ext Joint Only (Routine) IMPRESSION: Diffuse nonspecific lower leg edema ankle and foot edema is nonspecific but can be seen with systemic edema or infection. Mild medial ankle tenosynovitis Small retrocalcaneal bursal fluid collection No evidence of osteomyelitis or osseous injury. Electronically Signed: Julio Cesar Zendejas MD at 6:34 EDT ,
[2022-10-15] MEDS: FLUTICASONE/UMECLIDIN/VILANTER 1 EACH BLST.W.DEV INHALATION (12:22)
[2022-10-15 12:36] LABS: Vitamin B12 392 pg/mL (211-911); Vitamin D,25 Hydroxy 11.3 ng/mL
[2022-10-15 12:46] LABS: Ferritin 990 ng/mL (8-252); Iron 30 ug/dL (50-170); Iron Binding Capacity,Total 187 ug/dL (250-450)
--- NOTE | 2022-10-15 15:05 | CASEMGMT ---
RN?CM?RETAIL ASSOCIATE MANAGER BILINGUAL?CM?to room to meet with patient for initial transition planning/care coordination?assessment.?RN?CM?introduced self and role at [facility].? Pt voices understanding and consents to?assessment?at this time.? Pt resting in bed in no distress at this time.? Pt is A/O at this time and answers all questions appropriately.?? Care providers, pharmacy, and demographics verified/updated at this time. PCP: KAREN Do Specialists: SHIRA/Cardiology, Dr Landin-pulmonology Preferred Pharmacy: [facility]. Insurance: [employer] [facility] Prescription Benefit:?Yes Living Will/HPOA:?Pt does not currently have LW/HCPOA and declines info at this time.? Pt made aware that she can contact as an out-pt and make appt in the future if she decides she would like to talk with someone about this or would like to utilize [facility] social work for advanced directive completion.?? LNOK: , Jarod. Living Arrangements: Lives w/ in one-story home w/basement. 14 steps to enter home. Pt states she is independent. Transportation:?Pt states drives self and states no transportation concerns at this time.? also drives. DME: States has the following DME:?walker, cane, shower chair, nebulizer. Pt has a CPAP, but does not use it. She does not have home O2 and does not have a pulse ox. Recommended she get a pulse ox and she states it is affordable to buy one. Pt states no need for further DME at this time.? HHC/SNF: No hx of either. Pt declines need for HHC. Made aware if she changes her mind once returning home, to discuss this w/her PCP. Pt was also informed of [facility]'s homebound requirements for HHC. Pt wishes to return home and states has no concerns with going home at time of discharge.? CM?to follow for home oxygen needs and any further discharge planning/needs.? Pt voices no further concerns/needs at this time.? Advised pt to ask for?CM?if any further questions/concerns/needs arise.? Voices understanding. PLAN:??Home. Follow for possibel Home O2 PT/OT evals pending. Xavier BSN?RN?CM
--- NOTE | 2022-10-15 15:12 | CASEMGMT ---
RN SABRINA NOTE: Intro role of CM to patient and RODAS form explained re: Observation status for treatment of bilateral leg swelling.? Explained hospitalization will be paid per her insurance policy for Outpatient billing?and condition will continue to be evaluated for Inpt necessity. Also let pt know that [facility] sends paper in the billing packet with their phone number if questions arise. Discussed Pharmacy section of RODAS form and self administered medication guideline.? Pt verbalizes understanding and does not have further questions. ?Form signed, copy made and placed in chart, and original given to pt. Xavier MENDEZN RN CM
--- NOTE | 2022-10-15 15:41 | PCM.CONS.GEN ---
Assessment & Plan Assessment/Plan (1) Localized swelling of both lower legs: PLAN: Seems consistent with palpable purpura, recommend vasculitis workup. Will check hep panel and hiv. Consider skin biopsy. Will follow as needed, thank you, d/w primary team HPI Consult Data Date of Consult: 10/15/22 HPI Narrative Reason for Consultation: rash HPI Narrative: LIZZY PEACOCK, is a 67 F who presented 10/14 with 2 weeks progressive rash on BLE. Nontender, some mild swelling, no drainage, no fever, no night sweats. No new exposures/creams/hot tubs/etc. Came to ED, admitted. Feeling about the same today. Full ROS performed and neg except as noted above. [facility] Medical History Atherosclerosis of coronary artery of standing rock heart without angina pectoris Benign essential HTN Bilateral carotid bruits COPD (chronic obstructive pulmonary disease) Left carotid artery stenosis Nicotine dependence Pure hypercholesterolemia Home Medications aspirin 81 mg tablet,delayed release 81 mg PO DAILY@0800 10/12/13 [History Last Taken 11/25/16 07:00] fluticasone fur. 100 mcg-umeclid 62.5 mcg-vilant 25 mcg inhalat.powder (Trelegy Ellipta) 1 inh inhalation DAILY 11/05/21 [History Last Taken Unknown] gabapentin 600 mg tablet 600 mg PO TID 11/05/21 [History Last Taken Unknown] furosemide 20 mg tablet 20 mg PO DAILY #90 tabs 02/04/22 [Rx Last Taken Unknown] rosuvastatin 10 mg tablet 10 mg PO QHS #90 tabs 02/27/22 [Rx Last Taken 09/15/22] lisinopril 40 mg tablet 40 mg PO DAILY #90 tabs 08/24/22 [Rx Last Taken Unknown] albuterol sulfate 90 mcg/actuation aerosol inhaler (Ventolin HFA) 1 - 2 puff inhalation Q4H PRN PRN Wheezing 7 days #1 inh 09/16/22 [Rx Last Taken Unknown] guaifenesin 1,200 mg tablet, extended release 12 hr (Mucinex) 1,200 mg PO BID 09/16/22 [History Last Taken 09/16/22] carvedilol 25 mg tablet 12.5 mg PO BID 10/14/22 [History Last Taken Unknown] Allergy/AdvReac Type Severity Reaction Status Date / Time No Known Allergies Allergy Verified 10/14/22 15:27 Family History Father CAD (coronary artery disease) from [place] Sister PVD (peripheral vascular disease) 1 sister had carotid endarterectomies Surgical History History of appendectomy History of carpal tunnel surgery History of coronary artery stent placement (11/25/16) left lung partial lobectomy Social History Smoking Status: Former smoker quit date: 10/13/13 alcohol intake: current alcohol intake frequency: 3 or more drinks per day Alcohol type: hard liquor caffeine: Yes Type: coffee Number of servings: 4 Physical Exam Const alert, oriented x3 and no apparent distress General Appearance: cooperative HEENT normocephalic and head/scalp atraumatic Eyes PERRL and EOMs intact bilaterally Neck supple and No nodes Resp normal air movement and clear to auscultation bilaterally Cardio regular rate and regular rhythm GI soft to palpation, non-tender and non-distended Extremity General Extremity: edema Skin Skin Narrative: L more than RLE with palpable purpura Neuro CN's II-XII intact bilaterally Lab / Micro Data Attestation: I reviewed the patient's lab results. 10/15/22 05:29 10/15/22 05:29 Labs: Laboratory Results - last 24 hr 10/14/22 15:50: WBC 6.0, RBC 3.25 L, Hgb 10.3 L, Hct 31.9 L, MCV 98.2, MCH 31.7, MCHC 32.3, RDW Std Deviation 49.0 H, RDW Coeff of Franny 13.7, Plt Count 236, MPV 10.4, Immature Gran % (Auto) 3.500 H, Neut % (Auto) 64.3, Lymph % (Auto) 15.6 L, [place] % (Auto) 13.4 H, Eos % (Auto) 2.5, Baso % (Auto) 0.7, Absolute Neuts (auto) 3.9, Absolute Lymphs (auto) 0.94, Nucleated RBC % 0, Sodium 132 L, Potassium 3.5, Chloride 94 L, Carbon Dioxide 34.0 H, Anion Gap 4 L, BUN 14, Creatinine 1.22 H, Estim Creat Clear Calc 43.51, Est GFR (MDRD) Af Amer 56 L, Est GFR (MDRD) Non-Af 47 L, BUN/Creatinine Ratio 11.5, Glucose 145 H, Calcium 8.7, Phosphorus 3.0, Magnesium 2.0, Total Bilirubin 0.90, AST 11 L, ALT 15, Alkaline Phosphatase 99, Troponin I High Sens 5, B-Natriuretic Peptide 62.0, Total Protein 6.3 L, Albumin 2.6 L, Globulin 3.7, Albumin/Globulin Ratio 0.7 L 10/14/22 19:50: Urine Color Yellow, Urine Clarity Clear, Urine pH 6.0, Ur Specific Gray 1.010, Urine Protein Negative, Urine Glucose (UA) Normal, Urine Ketones Negative, Urine Occult Blood Negative, Urine Nitrite Negative, Urine Bilirubin Negative, Urine Urobilinogen Normal, Ur Leukocyte Esterase Negative, Urine RBC 0 SEEN, Urine WBC 0 SEEN, Ur Squamous Epith Cells 0-5 SEEN, Urine Bacteria 0 SEEN, Urine Mucus 0 SEEN 10/14/22 20:50: Retic Count 3.70 H, Immature Retic Fraction 23.80 H, Retic Hgb Equivalent 32.9, Magnesium 2.0, Lactate Dehydrogenase 226, Total Creatine Kinase 37, Direct Antiglob Test NEG w/POLYSPECIFIC 10/14/22 22:45: Antibody Screen NEGATIVE 10/15/22 05:29: WBC 4.9, RBC 3.27 L, Hgb 10.5 L, Hct 32.2 L, MCV 98.5, MCH 32.1 H, MCHC 32.6, RDW Std Deviation 50.3 H, RDW Coeff of Franny 13.9, Plt Count 224, MPV 10.0, Immature Gran % (Auto) 3.900 H, Neut % (Auto) 79.5 H, Lymph % (Auto) 11.5 L, [place] % (Auto) 4.1, Eos % (Auto) 0.4, Baso % (Auto) 0.6, Absolute Neuts (auto) 3.9, Absolute Lymphs (auto) 0.56 L, Nucleated RBC % 0, Differential Comment SCANNED, ESR 53 H, Sodium 136, Potassium 4.1, Chloride 102, Carbon Dioxide 29.0, Anion Gap 5, BUN 12, Creatinine 0.93, Estim Creat Clear Calc 57.08, Est GFR (MDRD) Af Amer 77, Est GFR (MDRD) Non-Af 64, BUN/Creatinine Ratio 12.9, Glucose 166 H, Calcium 8.5, Iron 30 L, TIBC 187 L, Iron Saturation 16.0, Ferritin 990 H, C-React Prot Ext Range 98.70 H 10/15/22 05:29: C-React Prot Ext Range Cancelled, Vitamin B12 392, Vitamin D 25-Hydroxy 11.3, Folate 13.90, TSH 2.02 Radiology Impression Chest X-Ray 10/14/22 16:35 IMPRESSION: No acute findings in the chest. Electronically Signed: Dario Vogel MD at 16:47 EDT , Venous Duplex 10/14/22 17:32 IMPRESSION: There is no demonstrated deep venous thrombosis. Leg edema. Electronically Signed: Dario Vogel MD at 18:27 EDT , Foot X-Ray 10/14/22 19:15 IMPRESSION: There is non specific soft tissue swelling. Electronically Signed: Dario Vogel MD at 20:00 EDT , Tibia/Fibula X-Ray 10/14/22 19:15 IMPRESSION: Diffuse soft tissue swelling. Electronically Signed: Dario Vogel MD at 20:01 EDT ,
[2022-10-15 16:51] LABS: Erythrocyte Sedimentation Rate 47 mm/hr (0-30)
[2022-10-15 20:13] LABS: HIV - WCH Non-Reactive (Nonreactive)
[2022-10-15] MEDS: Atorvastatin Calcium 20 MG Tablet PO (21:26)
[2022-10-16] MEDS: Ondansetron 4 MG/2 ML Vial IV (02:22)
[2022-10-16 02:35] VITALS: BP 162/92; PULSE 88; RESP 16; TEMP 36.4; O2SAT 95
[2022-10-16 03:41] VITALS: BMI 23.9
[2022-10-16 05:07] LABS: Haptoglobin 309 mg/dL (37-355)
[2022-10-16 05:45] VITALS: BP 124/69; PULSE 86; RESP 16; RESP 18; TEMP 36.6; O2SAT 97
[2022-10-16 06:20] LABS: Hematocrit 29.3 % (37-47); Hemoglobin 9.4 g/dL (12.0-15.0); Mean Corp Hgb Conc 32.1 g/dL (32-36); Mean Corpuscular Hgb 32.1 pg (27.0-32.0); POSITIVE COUNT YES; POSITIVE MORPHOLOGY YES; Platelet Count 252 K/mm3 (150-450); RBC Distribution Width CV 13.8 % (11.6-14.6); RBC Distribution Width SD 50.9 fl (35.1-43.9); Red Blood Count 2.93 M/mm3 (4.2-5.4); White Blood Count 5.4 K/mm3 (4.4-11.0)
[2022-10-16 06:27] LABS: Differential Indicated MANUAL DIFF
[2022-10-16 06:58] VITALS: O2SAT 93
[2022-10-16 07:37] LABS: Basophil 1 % (0-1); Eosinophil 1 % (0-5); Lymphocyte 22 % (19-41); Metamyelocyte 9 % (0-1); Myelocyte 4 % (0-0); Neutrophil-Band 5 % (0-5); Neutrophil-Segmented 58 % (47-70); Total Cells Counted 100 (MANUAL DIFF)
[2022-10-16 07:38] LABS: Absolute Neutrophil Count 3.4 X10^3/uL (2.0-7.7); Platelet Estimate ADEQUATE (ADEQ); Red Cell Morphology NORM C+C NORMAL (NORM C&C)
[2022-10-16 07:39] LABS: Absolute Lymphocyte Count 1.19 X10^3/uL (0.83-4.51)
[2022-10-16] MEDS: FLUTICASONE/UMECLIDIN/VILANTER 1 EACH BLST.W.DEV INHALATION (07:41)
[2022-10-16] MEDS: Enoxaparin 40 MG/0.4 ML Syringe SC (07:41)
[2022-10-16] MEDS: guaiFENesin 1,200 MG Tablet 1200 MG PO (07:42)
[2022-10-16] MEDS: Aspirin E.C. 81 MG Tablet PO (07:42)
[2022-10-16] MEDS: Lisinopril 40 MG Tablet PO (07:42)
[2022-10-16] MEDS: Iron Polysaccharide Complex 150 MG CAPSULE PO (07:42)
[2022-10-16] MEDS: Carvedilol 25 MG Tablet 12.5 MG PO (07:42)
[2022-10-16 09:16] LABS: Procalcitonin 0.89 ng/mL (0.00-0.09)
[2022-10-16 09:18] LABS: Erythrocyte Sedimentation Rate 34 mm/hr (0-30)
[2022-10-16 09:50] LABS: Fibrinogen 536 mg/dl (203-444)
[2022-10-16 09:51] LABS: International Normalized Ratio 1.1; Partial Thromboplast Time 38.2 Seconds (24.1-36.2)
[2022-10-16 10:00] VITALS: RESP 18
[2022-10-16 10:23] LABS: ALB/GLOB Ratio 0.6 RATIO (0.9-2.4); AST(SGOT) 16 U/L (15-37); Alanine Aminotransfer ALT/SGPT 15 U/L (13-56); Albumin, Serum 2.5 g/dL (3.2-5.0); Alkaline Phosphatase 96 U/L (45-117); Anion Gap 3 (5-15); BUN 11 mg/dL (7-18); BUN/Creat Ratio 10.9 RATIO (10-20); Calcium,Total 8.8 mg/dL (8.5-10.1); Chloride 102 mmol/L (98-107); Creatinine, Serum 1.01 mg/dL (0.55-1.02); EST Glomerular Filtration Rate 58 mL/min (>60); Est Glom Filt Rate - Afr Amer 70 mL/min (>60); Estimated Creatinine Clearance 52.56 ml/min; Glucose 127 mg/dL (74-106); Potassium 3.7 mmol/L (3.5-5.1); Protein, Total 6.5 g/dL (6.4-8.2); Sodium Level 136 mmol/L (136-145)
[2022-10-16 10:29] LABS: Cholesterol 109 mg/dL (200); High Density Lipoprotein 38 mg/dL; Triglycerides 94 mg/dL; Very Low Density Lipoprotein 19 mg/dL (5-40)
--- NOTE | 2022-10-16 11:26 | PCM.DC ---
Discharge Instructions Diet Discharge Diet: No restrictions Activity Discharge Activity: - (Elevate legs as possible) Follow Up Care Test Results: Test results from this visit will be discussed in further detail at your follow-up appointment, if applicable. Discharge Plan Admission Admit Date/Time: 10/14/22 18:27 Primary Reason for Your Visit: Leg rash and swelling Attending Provider: Layla Tolbert Primary Care Provider: Izabella Do NP Consulting Providers: Adan Martin; Chuy Houston Instructions Patient Instructions: ED Peripheral Edema, Bilateral Additional Instructions / Restrictions: DISCHARGE INSTRUCTIONS PLEASE READ *Please take this with you to your next doctors appointment* -It will be incredibly important that you follow with dermatology next 10/21/2022 at 8 AM. You will see Mark Cox at [facility] at [address] in [facility]. Call the office [phone] with any questions. You have several studies with inflammation pending that will need followed up on an outpatient basis and you may need a biopsy of the rash as well. -Additionally you will be sent out on 60 mg of steroids daily for 7 days, at your follow-up appointment it can be decided if this needs extended, tapered, or if the course is complete -Strongly advised that you keep your legs elevated and you would benefit from wearing compression stockings -You will also be discharged on an iron supplementation to take daily. If you experience any constipation please take MiraLAX daily to maintain regular bowel movements -Would recommend lab work (CBC) to check your blood counts in 2 to 3 days through your primary care physician's office. Please call their office upon discharge to obtain order for lab work. -We discussed warning signs and symptoms, it is important you return to the hospital if you develop worsening rash, fever or chills, or any other concerning symptoms. -Please call your primary care provider's office upon discharge to schedule a hospital follow up within 1 week. -For any concerning signs or symptoms please call 911 or proceed to the nearest emergency department Discharge Orders/Prescriptions Prescriptions: New polysaccharide iron complex [Ferrex 150] 150 mg iron Capsule 150 mg PO DAILY Qty: 30 0RF prednisone 20 mg tablet 60 mg PO DAILY 7 Days Qty: 21 0RF Continued gabapentin 600 mg tablet 600 mg PO TID Trelegy Ellipta 100-62.5-25 mcg blister with device 1 inh inhalation DAILY aspirin 81 MG tablet 81 mg PO DAILY@0800 carvedilol 25 mg tablet 12.5 mg PO BID Rx Instructions: must administer with a meal/food Mucinex 1,200 mg tablet extended release 12hr 1,200 mg PO BID albuterol sulfate [Ventolin HFA] 90 mcg/actuation HFA aerosol inhaler 1 - 2 puff inhalation Q4H PRN PRN (Reason: Wheezing) 7 Days Qty: 1 1RF furosemide 20 mg tablet 20 mg PO DAILY Qty: 90 3RF rosuvastatin 10 mg tablet 10 mg PO QHS Qty: 90 3RF lisinopril 40 mg tablet 40 mg PO DAILY Qty: 90 3RF Referrals / Follow Up: Izabella Do RAW STOCK DYEING MACHINE TENDER, RAW STOCK DYEING MACHINE TENDER-C [Primary Care Provider] - Within 1 Week Mark Cox PA [Non-Staff] - 10/21/22 8:00 am Disposition Disposition (needs filled in before D/C Order can be placed): Home, Self Care
[2022-10-16 11:45] VITALS: BP 155/84; PULSE 88; RESP 18; TEMP 36.4; O2SAT 94
[2022-10-16 14:09] VITALS: BP 169/53; PULSE 72; RESP 18; TEMP 36.7; O2SAT 98
--- NOTE | 2022-10-16 14:09 | DS.PCM_ITS ---
Providers Date of Admission: 10/14/22 Date of Discharge: 10/16/22 Primary Care Physician: DIPIKA Diane Consultations 10/14/22 19:56 Consult: Infectious Disease Routine Consulting Provider: Adan Martin Reason for Consult: rash in lower legs EMERGENT Consult: No MD Notified: Yes Date Notified: 10/14/22 Time Notified: 19:57 Method of Notification: ED Physician Initiated Reason For Visit: B/L LEG SWELLING Diagnosis Discharge Diagnosis (1) Localized swelling of both lower legs: Status: Acute Code(s): R22.43 - Localized swelling, mass and lump, lower limb, bilateral Plan #Bilateral leg swelling with petechiae and purpura suspicious for vasculitis #anemia #recent R ankle fracture #CKD stage IIIb #COPD #Transient hypotension- resolved #Coronary artery status post cardiac stent last one in 2016 #dyslipidemia #bilateral carotid stenosis Medications at Discharge Home Medications aspirin 81 mg tablet,delayed release 81 mg PO DAILY@0800 10/12/13 fluticasone fur. 100 mcg-umeclid 62.5 mcg-vilant 25 mcg inhalat.powder (Trelegy Ellipta) 1 inh inhalation DAILY 11/05/21 gabapentin 600 mg tablet 600 mg PO TID 11/05/21 furosemide 20 mg tablet 20 mg PO DAILY #90 tabs 02/04/22 rosuvastatin 10 mg tablet 10 mg PO QHS #90 tabs 02/27/22 lisinopril 40 mg tablet 40 mg PO DAILY #90 tabs 08/24/22 albuterol sulfate 90 mcg/actuation aerosol inhaler (Ventolin HFA) 1 - 2 puff inhalation Q4H PRN PRN Wheezing 7 days #1 inh 09/16/22 guaifenesin 1,200 mg tablet, extended release 12 hr (Mucinex) 1,200 mg PO BID 09/16/22 carvedilol 25 mg tablet 12.5 mg PO BID 10/14/22 polysaccharide iron complex 150 mg iron capsule (Ferrex) 150 mg PO DAILY #30 caps 10/16/22 prednisone 20 mg tablet 60 mg (3 x 20 mg) PO DAILY 7 days #21 tabs 10/16/22 Hospital Course Summary of Care Provided Minutes Spent on Discharge: 60 Hospital Course: Patient is a 67-year-old female history of hypertension, COPD, CKD, tobacco use who presented to [facility] 10/14/2022 from her orthopedic office due to bilateral lower extremity swelling and rash. She was following with orthopedic surgery as she had a right fibular fracture and mild right ankle/lower leg swelling from the fracture for the past 3 weeks. Her left leg started swelling in addition in both legs developed a rash 2 weeks ago that was red to purple and on both lower extremities. Given the presentation she was sent to the ED. It did not appear to be infectious but given this was unclear infectious disease was brought on as well and no empiric antibiotics were started. Lower extremity duplex is negative. Patient was given a dose of methylprednisone on admission. Patient did have elevated inflammatory markers, upon speaking with her she reports her legs have been like this for 2 weeks and have not changed at all over the past week or so, swelling somewhat improved since being here and there has been no further worsening of rash or any symptoms and patient anxious to go home. ID evaluated and do not feel this was infectious in etiology and vasculitis work-up ordered. Patient's inflammatory markers trended down and lab work-up for vasculitis still pending however given patient was stable the week prior to coming in and has remained stable with no worsening and no systemic signs or symptoms and given that she has strong preference for going home feel it is reasonable to discharge patient on course of steroids and have her follow-up with dermatology next Wednesday as labs may be available by that time and she can further monitoring and management and if alternate referral needs to be made certainly could be at that time. Also strongly encouraged patient to follow with her primary care physician and she verbalized understanding. Discharge instructions as follows: -It will be incredibly important that you follow with dermatology next 10/21/2022 at 8 AM. You will see Mark Cox at [facility] at [address] in [facility]. Call the office with any questions. You have several studies with inflammation pending that will need followed up on an outpatient basis and you may need a biopsy of the rash as well. -Additionally you will be sent out on 60 mg of steroids daily for 7 days, at your follow-up appointment it can be decided if this needs extended, tapered, or if the course is complete -Strongly advised that you keep your legs elevated and you would benefit from wearing compression stockings -You will also be discharged on an iron supplementation to take daily. If you experience any constipation please take MiraLAX daily to maintain regular bowel movements -Would recommend lab work (CBC) to check your blood counts in 2 to 3 days through your primary care physician's office. Please call their office upon discharge to obtain order for lab work. -We discussed warning signs and symptoms, it is important you return to the hospital if you develop worsening rash, fever or chills, or any other concerning symptoms. -Please call your primary care provider's office upon discharge to schedule a hospital follow up within 1 week. -For any concerning signs or symptoms please call 911 or proceed to the nearest emergency department Physical Exam Narrative General: Alert, oriented, no apparent distress HEENT: Atraumatic, normocephalic Eyes: Anicteric, normal conjunctiva, extraocular movements grossly intact Neck: Supple Respiratory: Improved air movement, normal respiratory effort Cardiovascular: Regular rate GI: Soft, nontender, nondistended Extremities: 1+ lower extremity edema, wrinkles beginning on lower extremities Musculoskeletal: Moving all extremities, less pain moving ankles Neuro: No overt focal neurological deficits Skin: Has splotchy purple rash over left ankle, foot, extending group home up the calf as well with additional rash on right lower extremity and darker spots near her toes on that side as well, rash nonblanching and has had no progression since admission Psych: Cooperative Weight / BMI Weight Weight: 69.4 kg Body Mass Index (BMI) 23.9 ABG / Lab / Microbiology Data 10/16/22 05:46 10/16/22 09:25 Laboratory: Laboratory Results - last 24 hr 10/14/22 20:50: Haptoglobin 309 10/15/22 16:22: ESR 47 H, C-React Prot Ext Range 93.70 H, HIV 1&2 Antibody Non- Reactive 10/16/22 05:46: WBC 5.4, RBC 2.93 L, Hgb 9.4 L, Hct 29.3 L, MCV 100.0 H, MCH 32.1 H, MCHC 32.1, RDW Std Deviation 50.9 H, RDW Coeff of Franny 13.8, Plt Count 252, MPV 10.0, Neut % (Auto) Not Reportable, Absolute Neuts (auto) 3.4, Absolute Lymphs (auto) 1.19, Total Counted 100, Neutrophils % (Manual) 58, Band Neutrophils % 5, Lymphocytes % (Manual) 22, Eosinophils % (Manual) 1, Basophils % (Manual) 1, Metamyelocytes % 9 H, Myelocytes % 4 H, Diff Path Review May foll, Platelet Estimate ADEQUATE, RBC Morphology NORM C+C, ESR 34 H, Procalcitonin 0.89 H 10/16/22 09:25: PT 14.0, INR 1.1, APTT 38.2 H, Fibrinogen 536 H, Sodium 136, Potassium 3.7, Chloride 102, Carbon Dioxide 31.0, Anion Gap 3 L, BUN 11, Creatinine 1.01, Estim Creat Clear Calc 52.56, Est GFR (MDRD) Af Amer 70, Est GFR (MDRD) Non-Af 58 L, BUN/Creatinine Ratio 10.9, Glucose 127 H, Calcium 8.8, Total Bilirubin 0.50, AST 16, ALT 15, Alkaline Phosphatase 96, C-React Prot Ext Range 60.10 H, Total Protein 6.5, Albumin 2.5 L, Globulin 4.0, Albumin/Globulin Ratio 0.6 L, Triglycerides 94, Cholesterol 109, LDL Cholesterol 52, VLDL Cholesterol 19, HDL Cholesterol 38 L Radiography Diagnostic Testing: Radiology Impression Lower Extremity MRI 10/15/22 09:26 IMPRESSION: Diffuse nonspecific lower leg edema ankle and foot edema is nonspecific but can be seen with systemic edema or infection. Mild medial ankle tenosynovitis Small retrocalcaneal bursal fluid collection No evidence of osteomyelitis or osseous injury. Electronically Signed: Julio Cesar Zendejas MD at 6:34 EDT Reading Location ID and State: [facility], [facility] / [place] Tel , Service support , D/C Instructions Discharge Diet: No restrictions Meaningful Use Info Meaningful Use Diagnoses (Choose all that apply): None applicable Discharge Plan Admission Admit Date/Time: 10/14/22 18:27 Primary Reason for Your Visit: Leg rash and swelling Attending Provider: Layla Tolbert Primary Care Provider: Izabella Do NP Consulting Providers: Adan Martin; Chuy Houston Instructions Patient Instructions: ED Peripheral Edema, Bilateral Additional Instructions / Restrictions: DISCHARGE INSTRUCTIONS PLEASE READ *Please take this with you to your next doctors appointment* -It will be incredibly important that you follow with dermatology next 10/21/2022 at 8 AM. You will see Mark Cox at [facility] at [address] in [facility]. Call the office [phone] with any questions. You have several studies with inflammation pending that will need followed up on an outpatient basis and you may need a biopsy of the rash as well. -Additionally you will be sent out on 60 mg of steroids daily for 7 days, at your follow-up appointment it can be decided if this needs extended, tapered, or if the course is complete -Strongly advised that you keep your legs elevated and you would benefit from wearing compression stockings -You will also be discharged on an iron supplementation to take daily. If you experience any constipation please take MiraLAX daily to maintain regular bowel movements -Would recommend lab work (CBC) to check your blood counts in 2 to 3 days through your primary care physician's office. Please call their office upon discharge to obtain order for lab work. -We discussed warning signs and symptoms, it is important you return to the hospital if you develop worsening rash, fever or chills, or any other concerning symptoms. -Please call your primary care provider's office upon discharge to schedule a hospital follow up within 1 week. -For any concerning signs or symptoms please call 911 or proceed to the nearest emergency department Discharge Orders/Prescriptions Prescriptions: New polysaccharide iron complex [Ferrex 150] 150 mg iron Capsule 150 mg PO DAILY Qty: 30 0RF prednisone 20 mg tablet 60 mg PO DAILY 7 Days Qty: 21 0RF Continued gabapentin 600 mg tablet 600 mg PO TID Trelegy Ellipta 100-62.5-25 mcg blister with device 1 inh inhalation DAILY aspirin 81 MG tablet 81 mg PO DAILY@0800 carvedilol 25 mg tablet 12.5 mg PO BID Rx Instructions: must administer with a meal/food Mucinex 1,200 mg tablet extended release 12hr 1,200 mg PO BID albuterol sulfate [Ventolin HFA] 90 mcg/actuation HFA aerosol inhaler 1 - 2 puff inhalation Q4H PRN PRN (Reason: Wheezing) 7 Days Qty: 1 1RF furosemide 20 mg tablet 20 mg PO DAILY Qty: 90 3RF rosuvastatin 10 mg tablet 10 mg PO QHS Qty: 90 3RF lisinopril 40 mg tablet 40 mg PO DAILY Qty: 90 3RF Referrals / Follow Up: Izabella Do NASCAR PIT CREW PERSON, NASCAR PIT CREW PERSON-C [Primary Care Provider] - Within 1 Week Mark oCx PA [Non-Staff] - 10/21/22 8:00 am Disposition Disposition (needs filled in before D/C Order can be placed): Home, Self Care Charges/Coding Visit Charges Inpatient E&M: 36560 Disch Hosp >30min
--- NOTE | 2022-10-16 14:45 | CASEMGMT ---
RN CM in to discuss needs at discharge. Patient denies needs at discharge. Patient currently on oxygen, will monitor for home oxygen. RN CM updated floor nurse to complete O2 testing prior to discharge. Patient had no further questions or concerns at this time.
--- NOTE | 2022-10-16 15:20 | NURSING ---
Patient refusing to have O2 tested for homegoing. Says is waiting outside and she's just going.
--- NOTE | 2022-10-16 15:52 | NURSING ---
Patient discharged per orders. Refused to have O2 tested for home use. Stated she understood what could happen to her .
[2022-10-17 05:07] LABS: HEPATITIS B SURFACE AG Negative (Negative); Hep C Antibodies Non Reactive (Non Reactive); Hepatitis A IgM Antibody Negative (Negative); Hepatitis B Core AB IgM Negative (Negative)
[2022-10-19 09:04] LABS: Pathologist Review Reviewed
[2022-10-19 13:07] LABS: ANTINUCLEAR ANTIBODIES DIRECT Negative (Negative)
[2022-10-22 13:08] LABS: Complement C3 147 mg/dL (82-167); Cytoplasmic Ab (C-ANCA) <1:20 titer (Neg:<1:20); Perinuclear Ab (P-ANCA) <1:20 titer (Neg:<1:20)
== END 2022-10-16 14:09 | disposition home or self-care (01) ==
LOC: ED 18:38 → PCU 10-15 01:09
PROVIDERS: Internal Medicine Infectious Disease; Admitting Provider Internal Medicine; Emergency Provider Emergency Medicine; PCP Nurse Practitioner Primary Care; Visit Provider Internal Medicine
DX: R22.43 Localized swelling, mass and lump, lower limb, bilateral (principal); J44.9 Chronic obstructive pulmonary disease, unspecified; N18.32 Chronic kidney disease, stage 3b; E78.00 Pure hypercholesterolemia, unspecified; I12.9 Hypertensive chronic kidney disease with stage 1 through stage 4 chronic kidney disease, or unspecified chronic kidney disease; Z87.891 Personal history of nicotine dependence; R42 Dizziness and giddiness; R21 Rash and other nonspecific skin eruption; I95.0 Idiopathic hypotension; Z79.82 Long term (current) use of aspirin; I25.10 Atherosclerotic heart disease of native coronary artery without angina pectoris; R60.0 Localized edema; Z79.51 Long term (current) use of inhaled steroids; S82.891D Other fracture of right lower leg, subsequent encounter for closed fracture with routine healing; X58.XXXD Exposure to other specified factors, subsequent encounter; Z79.899 Other long term (current) drug therapy; R23.3 Spontaneous ecchymoses
CPT/HCPCS: 36415; 71045; 73590; 73630; 73721; 80048; 80053; 80061; 80074; 81001; 82306; 82550; 82595; 82607; 82728; 82746; 83010; 83540; 83550; 83615; 83735; 83880; 84100; 84145; 84443; 84484; 85025; 85045; 85384; 85610; 85652; 85730; 86038; 86140; 86160; 86225; 86235; 86256; 86703; 86850; 86880; 93005; 93970; 94640; 94668; 94762; 96361; 96372; 96374; 96375; 97166; 99221; 99285; J7030; J7040; A4216; G0378; J2405

== ENCOUNTER → 2023-01-05 | Outpatient (CLI) | payer MEDICARE, SELFPAY ==
[2016-11-25 14:44] VITALS: BMI 21.6
[2023-01-05 12:46] LABS: Base Excess 2 mmol/L (-2 to +2); Bicarbonate 25.4 mmol/L (22-26); Blood Gas Specimen Type ART; Mode Not entered; O2 Delivery Device Room Air; PO2 88 mmHG (75-100); SITE R Brach; SO2 98 % (95-99); Total Carbon Dioxide 26 mmol/L; pCO2 33.3 mmHg (35-45); pH 7.49 (7.35-7.45)
== END | disposition home or self-care (01) ==
LOC: CVS 12:27 → PSN 12:52
PROVIDERS: PCP Nurse Practitioner Primary Care; Referring Provider Internal Medicine Pulmonary Disease; Visit Provider Internal Medicine Pulmonary Disease
DX: R06.02 Shortness of breath (principal); R05.9 Cough, unspecified
CPT/HCPCS: 36600; 82803

== ENCOUNTER 2023-12-11 13:40 | Emergency (ER) | payer MEDICARE, SELFPAY ==
[2016-11-25 14:44] VITALS: BMI 21.6
[2023-12-11] VITALS (8 sets, daily range): BP systolic 110–167; BP diastolic 55–118; PULSE 76–86; RESP 16–18; TEMP 36.4–36.6; O2SAT 94–98; BMI 16.9
[2023-12-11 14:49] LABS: Absolute Lymphocyte Count 1.21 X10^3/uL (0.83-4.51); Basophil# 0.04 X10^3/uL; Basophil% 0.4 % (0-1); Eosinophil# 0.19 X10^3/uL; Eosinophils% 1.9 % (0-5); Hematocrit 42.4 % (37-47); Hemoglobin 13.7 g/dL (12.0-15.0); Lymphocyte # 1.21 X10^3/ul (0.83-4.51); Lymphocyte % 11.9 % (19-41); Mean Corp Hgb Conc 32.3 g/dL (32-36); Mean Corpuscular Hgb 29.6 pg (27.0-32.0); Mean Corpuscular Volume 91.6 fL (81-99); Mean Platelet Vol. 10.1 fl (6.2-12.0); Monocyte# 0.66 X10^3/uL; Monocyte% 6.5 % (0-10); NRBC Flagged by Analyzer 0 % (0-5); Neutrophil # 7.97 X10^3/uL (2.7-7.7); Neutrophil % 78.6 % (47-70); Platelet Count 277 K/mm3 (150-450); RBC Distribution Width CV 13.3 % (11.6-14.6); RBC Distribution Width SD 45.2 fl (35.1-43.9); Red Blood Count 4.63 M/mm3 (4.2-5.4); White Blood Count 10.1 K/mm3 (4.4-11.0)
[2023-12-11 15:05] LABS: ALB/GLOB Ratio 0.8 RATIO (0.9-2.4); AST(SGOT) 22 U/L (15-37); Alanine Aminotransfer ALT/SGPT 15 U/L (13-56); Albumin, Serum 3.5 g/dL (3.2-5.0); Alkaline Phosphatase 99 U/L (45-117); Anion Gap 5 (5-15); BUN 13 mg/dL (7-18); BUN/Creat Ratio 11.1 RATIO (10-20); Calcium,Total 9.5 mg/dL (8.5-10.1); Chloride 104 mmol/L (98-107); Creatinine, Serum 1.17 mg/dL (0.55-1.02); EST Glomerular Filtration Rate 49 mL/min (>60); Est Glom Filt Rate - Afr Amer 59 mL/min (>60); Estimated Creatinine Clearance 35.67 ml/min; Globulin 4.5 g/dL (2.2-4.2); Glucose 108 mg/dL (74-106); Potassium 3.7 mmol/L (3.5-5.1); Sodium Level 138 mmol/L (136-145)
--- NOTE | 2023-12-11 15:31 | CT_ITS ---
STUDY: CT ABDOMEN AND PELVIS WITH CONTRAST REASON FOR EXAM: Female, 68 years old. diverticulitis r/o perforation RADIATION DOSAGE (If Supplied By Facility): CTDIvol = ( 10.17 ) mGy, DLP = ( 322.14 ) mGycm TECHNIQUE: Transaxial images were obtained from the dome of the diaphragm to the symphysis pubis without oral contrast. IV 75mL Isovue-370 was administered. Sagittal and coronal images were reconstructed. Individualized dose optimization techniques were used for this CT. COMPARISON: None. FINDINGS: The visualized lung bases are unremarkable. Mild pericardial effusion. Normal liver. Normal gallbladder. Mild prominence of the biliary system. Normal spleen. Normal pancreas. Normal bilateral adrenal glands. Normal right kidney. Normal left kidney. Normal visualized stomach. Normal small intestine. Dilated colon with air -feces levels Wall thickening of the sigmoid colon with adjacent mesenteric stranding. The appendix is not visualized. Calcified abdominal aorta. Normal inferior vena cava. Small nodes in the retroperitoneum. Normal urinary bladder. 1.2 x 3 cm cm lower pelvic collection. A small abscess cannot be excluded. Normal abdominal wall. Bilateral old rib fractures. CT/Abdomen/Pelvis W IV Cont ONLY IMPRESSION: Dilated colon with air -feces levels Wall thickening of the sigmoid colon with adjacent mesenteric stranding. And adjacet lower pelvic collection. A small abscess cannot be excluded. Mild pericardial effusion. Electronically Signed: Benedicto Genao DO at 18:10 EDT ,
[2023-12-11] MEDS: 0.9% Normal Saline (1000mL) 1,000 ML 999 ML IV (15:35)
[2023-12-11] MEDS: Ondansetron 4 MG/2 ML Vial IV (15:36)
[2023-12-11] MEDS: Morphine 4 MG/ML Syringe IV ×2 (15:36→18:47)
[2023-12-11] MEDS: Piperacil/Tazobactam 3.375 GM in 0.9% Normal Saline (50mL MB+) 50 ML IV (15:58)
--- NOTE | 2023-12-11 16:09 | EDS_ITS ---
HPI History of Present Illness Chief Complaint: Abd Pain [facility] Medical History (Updated 10/24/22 @ 00:04 by Background Daemon) Left carotid artery stenosis Bilateral carotid bruits Pure hypercholesterolemia Benign essential HTN COPD (chronic obstructive pulmonary disease) Nicotine dependence Atherosclerosis of coronary artery of [place] heart without angina pectoris Home Medications ?Medication ?Instructions ?Recorded ?Last Taken ?Type aspirin 81 mg tablet,delayed 81 mg PO DAILY@0800 heart health 10/12/13 11/25/16 07:00 History release fluticasone fur. 100 mcg-umeclid 1 inh inhalation DAILY breathing 11/05/21 Unknown History 62.5 mcg-vilant 25 mcg inhalat.powder (Trelegy Ellipta) gabapentin 600 mg tablet 600 mg PO TID nerve pain 11/05/21 Unknown History furosemide 20 mg tablet 20 mg PO DAILY diuretic #90 tabs 02/01/23 Unknown Rx rosuvastatin 10 mg tablet See Rx Instructions .Route 04/01/23 Unknown Rx .COMPLEX #90 tabs carvedilol 25 mg tablet 25 mg PO ONCE 08/10/23 Unknown History lisinopril 40 mg tablet 40 mg PO DAILY blood pressure #90 11/16/23 Unknown Rx tabs Allergy/AdvReac Type Severity Reaction Status Date / Time No Known Allergies Allergy Verified 12/11/23 13:41 Family History Father CAD (coronary artery disease) from [place] Sister PVD (peripheral vascular disease) 1 sister had carotid endarterectomies Surgical History (Updated 10/24/22 @ 00:04 by Background Daemon) left lung partial lobectomy History of appendectomy History of carpal tunnel surgery History of coronary artery stent placement (11/25/16) Social History Smoking Status: Current every day smoker tobacco type: cigarettes alcohol intake: current alcohol intake frequency: 3 or more drinks per day Alcohol type: hard liquor caffeine: Yes Type: coffee Number of servings: 4 EXAM Physical Exam Const Vital Signs: 12/11/23 13:41 12/11/23 15:40 12/11/23 17:00 Temperature 97.5 F L Temperature Source Oral Pulse Rate 78 76 86 Respiratory Rate 18 16 18 Blood Pressure 110/77 167/87 H 163/84 H Blood Pressure Mean 88 113 110 Pulse Ox 98 94 95 Oxygen Delivery Method Room Air Room Air [facility] Medical decision making narrative: HISTORY OF PRESENT ILLNESS: 68-year-old female presents with concern for worsening diverticulitis. She notes she was hospitalized from Wednesday until at outside hospital. She states at outside hospital she started IV antibiotics and got a surgical consultation. She states they told her she had acute diverticulitis with abs cesses. She stated they consider consulting interventional radiology however this was never done. Patient was tolerating antibiotics by mouth on and was discharged on Cipro Flagyl for she has been taking. No sedation bowel vomiting worsening pain. Denies fever. Denies diarrhea or bloody stools. REVIEW OF SYSTEMS: Pertinent positives: Abdominal pain, nausea vomit Pertinent negatives: Syncope, chest pain PHYSICAL EXAM: Nursing triage notes reviewed, Vital signs reviewed Constitutional: please see mdm HENT: MMM Eyes: Pupils equal round and reactive to light, Extraocular muscles intact Neck: No stridor, no JVD, full neck ROM Lungs: Clear to auscultation, No wheezing or rales. No increased work of breathing, no conversational dyspnea, no accessory muscle use, no nasal flaring. No respiratory distress noted Heart: Regular rate and rhythm, No murmurs, No rubs and No gallops, 2+ distal pulses (radial, femoral, posterior tibial) in all extremities Abdomen: Soft, left lower quadrant TTP but no rigidity, rebound or guarding, no obvious peritoneal signs, no palpable pulsatile abdominal masses, no auscultated abdominal bruit : No CVAT Extremities: No edema Neuro: No focal neurological deficits, cranial nerves II through XII intact, 5/5 strength in all extremities. Intact sensation to light touch in all extremities, 2+ reflexes bilateral patella tendons. Normal gait. No ataxia. Skin: No rash or lesions noted MEDICAL DECISION MAKING: Chief Complaint: Abdominal pain External records reviewed: Reviewed records from outside hospital which diagnosed the patient with diverticulitis complicated by abscess Factors affecting care: n history of diverticulitis, COPD, hypertension, nicotine dependence, CAD, chronic carotid artery stenosis Social determinants of health: none History obtained from others: daughter Consults: general surgery (Dr. Chacon), internal medicine at [facility] (Dr. Toledo) [facility] Narrative: Patient was initially hemodynamically stable, afebrile and nontoxic-appearing. Exam with left lower quadrant TTP. No peritoneal signs I considered the following differential diagnosis: Acute diverticulitis, nausea vomiting, dehydration, electrolyte abnormality, perforated diverticula, intra- abdominal abscess I obtained a broad lab and imaging workup to further elucidate etiology of the patient's patient received IV fluids, IV morphine, IV Toradol and Zofran for symptomatic control. ALL IMAGES (IF OBTAINED) HAVE BEEN PERSONALLY REVIEWED AND INTERPRETED BY MYSELF. CBC with no leukocytosis, no anemia or thrombocytopenia BMP without evidence of significant electrolyte abnormalities, no anion gap, no acute kidney injury. LFTs show no evidence of hepatobiliary pathology. Lactate is wnl indicating no end-organ hypoperfusion and/or hypoxia. Urinalysis shows no evidence of urinary inflammation suggestive of UTI CT scan shows evidence of diverticulitis with abscess Patient received Zosyn empirically. I did discuss the case with our general surgeon to ascertain that he thought she is appropriate for admission here at [facility] and for further surgical intervention. The surgeon noted that the patient would likely benefit from evaluation by interventional radiology and noted we do not have interventional radiology here at [facility] as such he recommended transfer. Patient is agreeable to be transferred back to [facility] where she was just admitted. Discussed the case with the hospitalist who agreed to except her. Patient to be transferred once bed is assigned and as soon as transport is a available. The patient and/or family, caregivers express understanding. The patient and/or family, caregivers agrees with the plan. Shared decision making: I will have a discussion with the patient and or visitors regarding risk/benefits of further testing or admission. They will be made aware of of the risk/benefits inherent in this decision they will be given the opportunity to voice understanding. Total critical care time today provided was at least 0 minutes. This excludes separately billable procedures. Critical care time (if documented) is secondary to the patient having high probability of clinically significant/life threatening deterioration in the patient's condition which required my urgent intervention. Impression: 1. Abdominal pain 2. Nausea vomiting 3. History of diverticulitis Dispo: Transfer to [facility] This note was generated with [employer] dictation software. It may contain incorrect words, spelling, and punctuation that were not noted in review of the chart prior to signing. Lab Data Labs: Laboratory Results - last 24 hr 12/11/23 12/11/23 12/11/23 14:43 15:39 16:30 WBC 10.1 RBC 4.63 Hgb 13.7 Hct 42.4 MCV 91.6 MCH 29.6 MCHC 32.3 RDW Std Deviation 45.2 H RDW Coeff of Franny 13.3 Plt Count 277 MPV 10.1 Immature Gran % (Auto) 0.700 Neut % (Auto) 78.6 H Lymph % (Auto) 11.9 L [place] % (Auto) 6.5 Eos % (Auto) 1.9 Baso % (Auto) 0.4 Absolute Neuts (auto) 8.0 H Absolute Lymphs (auto) 1.21 Nucleated RBC % 0 Sodium 138 Potassium 3.7 Chloride 104 Carbon Dioxide 29.0 Anion Gap 5 BUN 13 Creatinine 1.17 H Estim Creat Clear Calc 35.67 Est GFR (MDRD) Af Amer 59 L Est GFR (MDRD) Non-Af 49 L BUN/Creatinine Ratio 11.1 Glucose 108 H Lactic Acid 0.7 Calcium 9.5 Total Bilirubin 0.50 AST 22 ALT 15 Alkaline Phosphatase 99 Total Protein 8.0 Albumin 3.5 Globulin 4.5 H Albumin/Globulin Ratio 0.8 L Urine Color Straw Urine Clarity Clear Urine pH 6.5 Ur Specific [place] 1.010 Urine Protein 15 H Urine Glucose (UA) Normal Urine Ketones 5 H Urine Occult Blood Negative Urine Nitrite Negative Urine Bilirubin Negative Urine Urobilinogen Normal Ur Leukocyte Esterase 25 H Urine RBC 0 SEEN Urine WBC 5-10 SEEN Ur Squamous Epith Cells 0 SEEN Urine Bacteria 2+ Hyaline Casts 0-5 SEEN Urine Mucus 0 SEEN Radiography Diagnostic Testing: Clinical Impression(s) from Imaging Studies Abdomen/Pelvis CT 12/11/23 15:31 IMPRESSION: Dilated colon with air -feces levels Wall thickening of the sigmoid colon with adjacent mesenteric stranding. And adjacet lower pelvic collection. A small abscess cannot be excluded. Mild pericardial effusion. Electronically Signed: Benedicto Genao DO at 18:10 EDT Reading Location ID and State: [facility] / [place] Tel [phone], Service support , Discharge Plan Triage Chief Complaint: Abd Pain ED Provider: Patricio Limon Dx/Rx/DC Orders Prescriptions: No Action gabapentin 600 mg tablet 600 mg PO TID Tre[place] Ellipta 100-62.5-25 mcg blister with device 1 inh inhalation DAILY carvedilol 25 mg tablet 25 mg PO ONCE aspirin 81 MG tablet 81 mg PO DAILY@0800 furosemide 20 mg tablet 20 mg PO DAILY Qty: 90 3RF rosuvastatin 10 mg tablet See Rx Instructions .ROUTE .COMPLEX Qty: 90 3RF Dose Instruction: TAKE 1 TABLET BY MOUTH EVERY DAY AT BEDTIME Rx Instructions: TAKE 1 TABLET BY MOUTH EVERY DAY AT BEDTIME lisinopril 40 mg tablet 40 mg PO DAILY Qty: 90 3RF Primary Care Provider: Izabella Do NP Referrals: Izabella Do NP, [facility] [Primary Care Provider] - Print Language: Salvadorean
[2023-12-11 16:28] LABS: Lactic Acid 0.7 mmol/L (0.4-1.9)
[2023-12-11 16:39] LABS: Mucous, Urine 0 SEEN /hpf (<or=2+); Red Blood Cells-Urine 0 SEEN /hpf (0-5); Squamous Epithelial Cells - UA 0 SEEN /hpf (5-10)
[2023-12-11 16:53] LABS: Color, Urine Straw (Yellow); Glucose, Dipstick Normal (Normal); Ketone-Dipstick 5 mg/dl (Negative); Leukocyte Esterase-Dipstick 25 /ul (Negative); Nitrite-Dipstick Negative (Negative); Occult Blood-Urine Negative /ul (Negative); Protein-Dipstick 15 mg/dl (Negative); Urine Bilirubin Dipstick Negative (Negative); Urine Clarity Clear (Clear); Urine Urobilinogen Normal (Normal); Urine pH 6.5 (5.0 - 8.0)
[2023-12-11 17:05] LABS: Bacteria 2+ /hpf (None Seen); Hyaline Cast 0-5 SEEN /lpf (0-5); White Blood Cells 5-10 SEEN /hpf (0-5)
[2023-12-11] MEDS: Ketorolac 15 MG/ML Vial IV (18:47)
[2023-12-11] MEDS: 0.9% Normal Saline (500mL Bag) 500 ML 999 ML IV (20:43)
[2023-12-11] MEDS: HYDROmorphone 0.5 MG/0.5 ML SYRINGE IV (21:44)
== END 2023-12-11 22:16 | disposition short-term general hospital (02) ==
LOC: ED 15:12
PROVIDERS: Emergency Provider Emergency Medicine; PCP Nurse Practitioner Primary Care; Visit Provider Emergency Medicine
DX: K57.32 Diverticulitis of large intestine without perforation or abscess without bleeding (principal); J44.9 Chronic obstructive pulmonary disease, unspecified; R10.32 Left lower quadrant pain; R11.2 Nausea with vomiting, unspecified; E78.00 Pure hypercholesterolemia, unspecified; F17.210 Nicotine dependence, cigarettes, uncomplicated; I10 Essential (primary) hypertension; I65.22 Occlusion and stenosis of left carotid artery; I25.10 Atherosclerotic heart disease of native coronary artery without angina pectoris; Z95.5 Presence of coronary angioplasty implant and graft; Z90.2 Acquired absence of lung [part of]; Z90.49 Acquired absence of other specified parts of digestive tract; Z79.82 Long term (current) use of aspirin; Z79.899 Other long term (current) drug therapy
CPT/HCPCS: 74177; 80053; 81001; 83605; 85025; 96365; 96366; 96375; 96376; 99284; J7030; Q9967; A4216; J2405